=== PATIENT | female | born 1950 | race Caucasian/White ===

== ENCOUNTER 2018-03-17 05:00 | Inpatient (IN) | payer MEDICARE, MEDICAID ==
[2018-03-17] MEDS ORDERED: ALBUTEROL SULFATE 0.083% NEB 2.5 MG/3 ML AMPUL NEB ONE (05:09)
--- NOTE | 2018-03-17 05:16 | ER Document Report ---
ED Respiratory Problem - General Stated Complaint: DIFFICULTY BREATHING Time Seen by Provider: 03/17/18 05:08 - HPI Patient complains to provider of: Short of breath Onset: This morning Short of Breath: Severe Cough: Productive Sputum amount: Small Notes: Patient is a 67-year-old female that presents to the emergency department for chief complaint of shortness of breath. Patient states she is in the process of being diagnosed with COPD. She does not currently have any home breathing treatments and has never required home breathing treatments. She does smoke tobacco daily. Since November she has had increased cough with sputum production and shortness of breath. She states when she woke up this morning the shortness of breath was significantly worse. Patient denies any chest pain fevers or chills. She reports mild improvement after receiving a DuoNeb by EMS. Past Medical History: Hypertension Past Surgical History: Reviewed in chart Social History: Daily tobacco. Denies drugs and alcohol Family History: Reviewed and noncontributory for presenting illness Allergies: Reviewed, see documented allergy list. REVIEW OF SYSTEMS: CONSTITUTIONAL : No fever No chills No diaphoresis No recent illness EENT: No vision changes No congestion No sore throat CARDIOVASCULAR: No chest pain No palpitations RESPIRATORY: shortness of breath cough difficulty breathing GASTROINTESTINAL: No abdominal pain No nausea No vomiting No diarrhea GENITOURINARY: No dysuria No hematuria No difficulty urinating MUSCULOSKELETAL: No back pain No leg pain No arm pain SKIN: No rashes No lesions LYMPHATIC: No swollen, enlarged glands. NEUROLOGICAL: No lightheadedness No headache No weakness No paresthesias PSYCHIATRIC: No anxiety No depression PHYSICAL EXAMINATION: Vital signs reviewed, nursing noted reviewed. GENERAL: Well-appearing, well-nourished and in no acute distress. HEAD: Atraumatic, normocephalic. EYES: Eyes appear normal, extraocular movements intact, sclera anicteric, conjunctiva are normal. ENT: nares patent, oropharynx clear without exudates. Moist mucous membranes. NECK: Normal range of motion, supple without lymphadenopathy LUNGS: Tachypneic, moderate accessory muscle use, speaking in partial sentences , tripoding, very diminished lung sounds bilaterally HEART: Tachycardic and regular rhythm without murmurs ABDOMEN: Soft, nontender, normoactive bowel sounds. No rebound, guarding, or rigidity. No masses appreciated. EXTREMITIES: Nontender, good range of motion, no pitting or edema. NEUROLOGICAL: No focal neurological deficits. Moves all extremities spontaneously Motor and sensory grossly intact on exam. PSYCH: Normal mood, normal affect. SKIN: Warm, Dry, normal turgor, no rashes or lesions noted on exposed skin - Related Data Allergies/Adverse Reactions: Cephalosporins Allergy (Verified 03/14/11 16:02) Past Medical History - Social History Smoking Status: Current Every Day Smoker Family History: Reviewed & Not Pertinent Pulmonary Medical History: Reports: Hx Pneumonia Past Surgical History: Reports: Hx Tubal Ligation - Immunizations Hx Diphtheria, Pertussis, Tetanus Vaccination: Yes Physical Exam - Vital signs Vitals: Pulse Ox 89 L 03/17/18 05:02 Course - Re-evaluation Re-evalutation: 03/17/18 05:16 Vitals reviewed. Nursing notes reviewed. Patient arrived by EMS hypoxic on nonrebreather and was placed on BiPAP. She received 125 mg Solu-Medrol, 2 mg magnesium, and 2 duo nebs by EMS prior to arrival. She was given another 2 albuterol treatments upon arrival to the ED. 03/17/18 05:41 Patient is now on BiPAP and oxygenating well. She is starting to feel improved. EKG shows no acute ischemic changes. 03/17/18 06:42 Patient reevaluated and is significantly improved. Her lung sounds are wheezy bilateral and still diminished. Chest x-ray showed no acute abnormality. Patient's ABG shows respiratory acidosis with hypercapnia consistent with COPD exacerbation. Patient will be admitted to the ICU for further management of her acute respiratory failure. Case discussed with admitting physician. Patient in agreement with this plan and improved at time of admission. Laboratory 03/17/18 03/17/18 03/17/18 05:13 05:13 05:13 WBC 7.3 RBC 5.76 H Hgb 18.0 H Hct 53.4 H MCV 93 MCH 31.3 MCHC 33.7 RDW 13.0 Plt Count 90 L Seg Neutrophils % 65.2 Lymphocytes % 23.9 Monocytes % 6.2 Eosinophils % 3.8 Basophils % 0.9 Absolute Neutrophils 4.7 Absolute Lymphocytes 1.7 Absolute Monocytes 0.5 Absolute Eosinophils 0.3 Absolute Basophils 0.1 Carbonic Acid HCO3/H2CO3 Ratio ABG pH ABG pCO2 ABG pO2 ABG HCO3 ABG Total CO2 ABG O2 Saturation ABG Base Excess FiO2 Sodium 143.6 Potassium 3.3 L Chloride 105 Carbon Dioxide 32 H Anion Gap 7 BUN 18 Creatinine 0.99 Est GFR ( Amer) > 60 Est GFR (Non-Af Amer) 56 L Glucose 155 H Calcium 8.8 Troponin I 0.079 03/17/18 05:13 WBC RBC Hgb Hct MCV MCH MCHC RDW Plt Count Seg Neutrophils % Lymphocytes % Monocytes % Eosinophils % Basophils % Absolute Neutrophils Absolute Lymphocytes Absolute Monocytes Absolute Eosinophils Absolute Basophils Carbonic Acid 1.82 H HCO3/H2CO3 Ratio 16:1 ABG pH 7.32 L ABG pCO2 60.3 H ABG pO2 44.1 L ABG HCO3 30.3 H ABG Total CO2 32.2 H ABG O2 Saturation 75.2 L ABG Base Excess 2.0 FiO2 ROOM AIR Sodium Potassium Chloride Carbon Dioxide Anion Gap BUN Creatinine Est GFR ( Amer) Est GFR (Non-Af Amer) Glucose Calcium Troponin I Chest X-Ray 03/17/18 05:09 IMPRESSION: No acute cardiopulmonary findings. 03/17/18 07:[address] Monroe who accepted admission - Vital Signs Vital signs: Temp Pulse Resp BP Pulse Ox 97.8 F 101 H 20 177/73 H 96 03/17/18 05:21 03/17/18 05:21 03/17/18 07:01 03/17/18 07:00 03/17/18 07:01 - Laboratory Result Diagrams: 03/17/18 05:13 03/17/18 05:13 Laboratory results interpreted by me: 03/17/18 03/17/18 03/17/18 05:13 05:13 05:13 RBC 5.76 H Hgb 18.0 H Hct 53.4 H Plt Count 90 L Carbonic Acid 1.82 H ABG pH 7.32 L ABG pCO2 60.3 H ABG pO2 44.1 L ABG HCO3 30.3 H ABG Total CO2 32.2 H ABG O2 Saturation 75.2 L Potassium 3.3 L Carbon Dioxide 32 H Est GFR (Non-Af Amer) 56 L Glucose 155 H - EKG Interpretation by Me Additional EKG results interpreted by me: 03/17/18 05:40 Interpreted by myself Sinus tachycardia, rate 100, PAC, borderline QT prolongation QTC 496, no ST elevation Critical Care Note - Critical Care Note Total time excluding time spent on procedures (mins): 40 Comments: Respiratory failure. Acidosis. Discharge - Discharge Clinical Impression: Hypoxia, COPD exacerbation, Respiratory acidosis, Elevated troponin Respiratory failure with hypercapnia Qualifiers: Chronicity: acute Qualified Code(s): J96.02 - Acute respiratory failure with hypercapnia Condition: Stable Disposition: ADMITTED INPATIENT Admitting Provider: [facility] Unit Admitted: ICU Referrals: ANAHI JOYA PA-C [NO LOCAL MD] - Follow up as needed
[2018-03-17 05:35] LABS: ARTERIAL BLOOD H2CO3 1.82 mmol/L (1.05-1.35); ARTERIAL BLOOD HCO3 30.3 mmol/L (20-24); ARTERIAL BLOOD O2 SATURATION 75.2 % (94-98); ARTERIAL BLOOD PCO2 60.3 mmHg (35-45); ARTERIAL BLOOD PH 7.32 (7.35-7.45); ARTERIAL BLOOD PO2 44.1 mmHg (80-100); ARTERIAL BLOOD TOTAL CO2 32.2 mmol/L (21-25)
[2018-03-17 05:40] LABS: ABSOLUTE BASOPHILS # (AUTO) 0.1 10^3/uL (0.0-0.2); ABSOLUTE EOSINOPHILS # (AUTO) 0.3 10^3/uL (0.0-0.6); ABSOLUTE LYMPHOCYTES (AUTO) 1.7 10^3/uL (0.5-4.7); ABSOLUTE MONOCYTES (AUTO) 0.5 10^3/uL (0.1-1.4); ABSOLUTE NEUT (AUTO) 4.7 10^3/uL (1.7-8.2); ARTERIAL BLOOD FIO2 ROOM AIR; BASOPHILS % (AUTO) 0.9 % (0-2); EOSINOPHILS % (AUTO) 3.8 % (0-6); HEMATOCRIT 53.4 % (36.0-47.0); LYMPHOCYTES % (AUTO) 23.9 % (13-45); MEAN CORPUSCULAR HEMOGLOBIN 31.3 pg (27.0-33.4); MEAN CORPUSCULAR HGB CONC 33.7 g/dL (32.0-36.0); MEAN CORPUSCULAR VOLUME 93 fl (80-97); MONOCYTES % (AUTO) 6.2 % (3-13); RED BLOOD COUNT 5.76 10^6/uL (3.72-5.28); SEGMENTED NEUTROPHILS % (AUTO) 65.2 % (42-78); TOTAL CELLS COUNTED % (AUTO) 100 %; WHITE BLOOD COUNT 7.3 10^3/uL (4.0-10.5)
[2018-03-17 05:54] LABS: ANION GAP 7 (5-19); BLOOD UREA NITROGEN 18 mg/dL (7-20); CALCIUM 8.8 mg/dL (8.4-10.2); CARBON DIOXIDE 32 mmol/L (22-30); CHLORIDE 105 mmol/L (98-107); GLUCOSE 155 mg/dL (75-110); POTASSIUM 3.3 mmol/L (3.6-5.0); SODIUM 143.6 mmol/L (137-145)
--- NOTE | 2018-03-17 06:03 | RADIOLOGY REPORT (SQ) ---
EXAM DESCRIPTION: XR CHEST 1 VIEW COMPLETED DATE/TME: 03/17/2018 05:09 CLINICAL HISTORY: 67 years Female, shortness of breath COMPARISON: None. NUMBER OF VIEWS/TECHNIQUE: 1/AP FINDINGS: Increased lung volume, clear parenchyma, prominent cardiac silhouette, atherosclerosis, and intact bony thorax. IMPRESSION: No acute cardiopulmonary findings.
[2018-03-17 06:14] LABS: PLATELET COUNT 90 10^3/uL (150-450)
[2018-03-17] MEDS ORDERED: ASPIRIN 81 MG TABLET, CHEWABLE PO ONE (06:44)
--- NOTE | 2018-03-17 07:32 | EKG REPORT ---
SEVERITY:- ABNORMAL ECG - SINUS TACHYCARDIA WITH PAC BIATRIAL ABNORMALITIES BORDERLINE INFERIOR Q WAVES BORDERLINE R WAVE PROGRESSION, ANTERIOR LEADS BORDERLINE PROLONGED QT INTERVAL : Confirmed by: Juan Sevilla MD 17-Mar-2018 07:32:27
--- NOTE | 2018-03-17 12:17 | PDOC H&P ---
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 A year ago she complained of wheeze around cats. I gave her albuterol. She refused pft and missed her follow up. Now she is off all meds. Past Medical History Cardiac Medical History: Reports: Hypertension, Peripheral Vascular Disease Pulmonary Medical History: Reports: Pneumonia EENT Medical History: Reports: Other - rhinitis Neurological Medical History: Reports: None Endocrine Medical History: Reports: None Renal/ Medical History: Reports: None Malignancy Medical History: Reports: None GI Medical History: Reports: None Musculoskeltal Medical History: Reports: Arthritis Psychiatric Medical History: Reports: None Traumatic Medical History: Reports: None Infectious Medical History: Reports: None Past Surgical History Past Surgical History: Reports: Tubal Ligation Social History Information Source: Dr. Land Smoking Status: Current Every Day Smoker Number of Years Smokin Frequency of Alcohol Use: None Hx Recreational Drug Use: No Hx Prescription Drug Abuse: No - Advance Directive Resuscitation Status: Full Code Family History Family History: CAD, DM Parental Family History Reviewed: Yes Children Family History Reviewed: Yes Sibling(s) Family History Reviewed.: Yes Medication/Allergy Home Medications: No Home Medications 03/17/18 Allergies/Adverse Reactions: Cephalosporins Allergy (Verified 03/14/11 16:02) Review of Systems Constitutional: ABSENT: fever(s), headache(s), weight loss Nose, Mouth, and Throat: ABSENT: sore throat Cardiovascular: PRESENT: dyspnea on exertion, edema. ABSENT: chest pain, orthropnea Respiratory: PRESENT: cough, dyspnea, sputum Gastrointestinal: ABSENT: abdominal pain, constipation, diarrhea, hematochezia, vomiting Genitourinary: ABSENT: dysuria, hematuria Integumentary: ABSENT: rash Physical Exam Vital Signs: Temp Pulse Resp BP Pulse Ox 97.8 F 101 H 19 178/63 H 97 03/17/18 05:21 03/17/18 05:21 03/17/18 11:01 03/17/18 11:00 03/17/18 11:01 General appearance: PRESENT: no acute distress Eye exam: ABSENT: conjunctiva pink Mouth exam: PRESENT: moist, neck supple Neck exam: ABSENT: lymphadenopathy, meningismus, tenderness, thyromegaly, tracheal deviation Respiratory exam: PRESENT: rhonchi, wheezes. ABSENT: rales Cardiovascular exam: ABSENT: diastolic murmur, irregular rhythm, systolic murmur GI/Abdominal exam: ABSENT: mass, organolmegaly, tenderness Extremities exam: PRESENT: pedal edema - 1+ Neurological exam: PRESENT: alert Psychiatric exam: PRESENT: appropriate affect Skin exam: PRESENT: other - ankles hyperpignmented. L ankle erythema ulcerations <1cm. Results Laboratory Results: Abnormal - 24 hr 03/17/18 03/17/18 03/17/18 05:13 05:13 05:13 RBC 5.76 H Hgb 18.0 H Hct 53.4 H Plt Count 90 L Carbonic Acid 1.82 H ABG pH 7.32 L ABG pCO2 60.3 H ABG pO2 44.1 L ABG HCO3 30.3 H ABG Total CO2 32.2 H ABG O2 Saturation 75.2 L Potassium 3.3 L Carbon Dioxide 32 H Est GFR (Non-Af Amer) 56 L Glucose 155 H Impressions: Chest X-Ray 03/17/18 05:09 IMPRESSION: No acute cardiopulmonary findings. Assessment & Plan - Diagnosis (1) Acute on chronic respiratory failure with hypercapnia Is this a current diagnosis for this admission?: Yes Plan: levaquin prednisone nebs (2) Chronic obstructive pulmonary disease with acute exacerbation Is this a current diagnosis for this admission?: Yes (3) Panacinar emphysema Is this a current diagnosis for this admission?: Yes (4) Type 2 diabetes mellitus without complications Qualifiers: Diabetes mellitus mcfp insulin use: without mcfp use Qualified Code(s): E11.9 - Type 2 diabetes mellitus without complications Is this a current diagnosis for this admission?: Yes Plan: A1c (5) Secondary polycythemia Is this a current diagnosis for this admission?: Yes (6) 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 Qualifiers: Non-pressure ulcer stage: limited to breakdown of skin Qualified Code(s): I83.223 - 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; L97.321 - 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 of skin; L97.321 - 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 of skin; L97.321 - 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 of skin; L97.321 - 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 of skin Is this a current diagnosis for this admission?: Yes (7) Chronic cor pulmonale Is this a current diagnosis for this admission?: Yes (8) Essential (primary) hypertension Is this a current diagnosis for this admission?: Yes (9) Atherosclerosis of [place] arteries of extremities with intermittent claudication, right leg Is this a current diagnosis for this admission?: Yes (10) Mixed hyperlipidemia Is this a current diagnosis for this admission?: Yes - Inpatient Certification Based on my medical assessment, after consideration of the patient's comorbidities, presenting symptoms, or acuity I expect that the services needed warrant INPATIENT care.: Yes I certify that my determination is in accordance with my understanding of Medicare's requirements for reasonable and necessary INPATIENT services [42 CFR 412.3e].: Yes Medical Necessity: Significant Comorbidiites Make Outpatient Treatment Too Risky , Need Close Monitoring Due to Risk of Patient Decompensation, Need For Continuous Telemetry Monitoring, Need for Nebulizer Therapy and Monitoring of Response, Need for IV Antibiotics, Risk of Complication if Not Cared For in Hospital, Risk of Diagnosis Which Will Require Inpatient Eval/Care/Monitoring
[2018-03-17] MEDS ORDERED: DEXTROSE 50%-WATER 25 GM/50 ML DISP.SYRIN IV PRN ×2 (12:25)
[2018-03-17] MEDS ORDERED: GLUCAGON,HUMAN RECOMB 1 MG INJ IM PRN (12:25)
[2018-03-17] MEDS ORDERED: INSULIN REG, HUMAN 100 UNIT/ML 3 ML VIAL (PYX) SUBCUT PRN (12:25)
[2018-03-17] MEDS ORDERED: DEXTROSE 40% GEL 15 GM TUBE PO PRN ×2 (12:25)
[2018-03-17] MEDS ORDERED: POTASSI CL 20 MEQ/1/2NS 1L 20 MEQ/1,000 ML RTUINJ IV PRN (14:00)
[2018-03-17] MEDS: AMLODIPINE BESYLATE 10 MG TABLET PO SCH (16:35)
[2018-03-17] MEDS: CLOPIDOGREL BISULFATE 75 MG TABLET PO SCH (16:35)
[2018-03-17] MEDS: ISOSORBIDE MONONITRATE 60 MG TAB.ER.24H PO SCH (16:35)
[2018-03-17] MEDS: IPRATROPIUM/ALBUTEROL 0.5-2.5 MG/3 ML AMPUL NEB SCH ×2 (16:37→19:57)
[2018-03-17] MEDS ORDERED: ENOXAPARIN SODIUM INJ 80 MG/0.8 ML DISP.SYRIN SUBCUT SCH (22:00)
[2018-03-17] MEDS: FAMOTIDINE 20 MG TABLET PO SCH ×2 (22:03→22:07)
[2018-03-18 06:53] LABS: HEMATOCRIT 45.8 % (36.0-47.0); MEAN CORPUSCULAR HEMOGLOBIN 30.9 pg (27.0-33.4); MEAN CORPUSCULAR HGB CONC 33.3 g/dL (32.0-36.0); MEAN CORPUSCULAR VOLUME 93 fl (80-97); RED BLOOD COUNT 4.94 10^6/uL (3.72-5.28); RED CELL DISTRIBUTION WIDTH 13.5 % (11.5-14.0); WHITE BLOOD COUNT 10.8 10^3/uL (4.0-10.5)
[2018-03-18 07:06] LABS: ANION GAP 5 (5-19); BLOOD UREA NITROGEN 21 mg/dL (7-20); CALCIUM 8.7 mg/dL (8.4-10.2); CARBON DIOXIDE 29 mmol/L (22-30); CHLORIDE 105 mmol/L (98-107); GLUCOSE 98 mg/dL (75-110); SODIUM 139.4 mmol/L (137-145)
[2018-03-18] MEDS ORDERED: POTASSI CL 20 MEQ/1/2NS 1L 20 MEQ/1,000 ML RTUINJ IV PRN (07:21)
[2018-03-18 07:36] LABS: HEMOGLOBIN 15.2 g/dL (12.0-15.5); PLATELET COUNT 78 10^3/uL (150-450)
--- NOTE | 2018-03-18 07:41 | EKG REPORT ---
SEVERITY:- ABNORMAL ECG - SINUS TACHYCARDIA ATRIAL PREMATURE COMPLEX BIATRIAL ABNORMALITIES ABNRM R PROG, CONSIDER ASMI OR LEAD PLACEMENT NONSPECIFIC T ABNORMALITIES, INFERIOR LEADS BORDERLINE PROLONGED QT INTERVAL : Confirmed by: Juan Sevilla MD 18-Mar-2018 07:40:36
--- NOTE | 2018-03-18 08:08 | PDOC PROGRESS REPORT ---
Subjective Progress Note for:: 03/18/18 Subjective:: less dyspnea Reason For Visit: RESPIRATORY FAILURE Physical Exam Vital Signs: Temp Pulse Resp BP Pulse Ox 98.4 F 91 17 179/64 H 100 03/18/18 03:31 03/18/18 03:31 03/18/18 03:31 03/18/18 03:31 03/18/18 03:31 Intake & Output 03/16/18 03/17/18 03/18/18 07:59 07:59 07:59 Intake Total 418 Output Total 500 Balance -82 Weight 152 lb 12.485 oz 141 lb 5.061 oz General appearance: PRESENT: no acute distress Respiratory exam: PRESENT: wheezes - milder Cardiovascular exam: ABSENT: diastolic murmur, irregular rhythm, systolic murmur GI/Abdominal exam: ABSENT: mass, organolmegaly, tenderness Extremities exam: PRESENT: pedal edema Neurological exam: PRESENT: oriented to situation Psychiatric exam: PRESENT: appropriate affect Results Laboratory Results: 03/18/18 04:35 03/17/18 03/17/18 03/17/18 05:13 13:54 19:25 Troponin I 0.079 0.155 0.112 03/18/18 00:43 Troponin I 0.094 Abnormal - 24 hr 03/17/18 03/17/18 03/18/18 14:05 21:31 04:35 WBC 10.8 H Plt Count 78 L POC Glucose 145 H 119 H Impressions: Chest X-Ray 03/17/18 05:09 IMPRESSION: No acute cardiopulmonary findings. Assessment & Plan - Diagnosis (1) Acute on chronic respiratory failure with hypercapnia Is this a current diagnosis for this admission?: Yes Plan: bipap70% (2) Chronic obstructive pulmonary disease with acute exacerbation Is this a current diagnosis for this admission?: Yes Plan: prednisone levaquin (3) Panacinar emphysema Is this a current diagnosis for this admission?: Yes Plan: advair spiriva (4) Type 2 diabetes mellitus without complications Qualifiers: Diabetes mellitus nursing home insulin use: without remote computer terminal operator use Qualified Code(s): E11.9 - Type 2 diabetes mellitus without complications Is this a current diagnosis for this admission?: Yes Plan: bs lower A1c pending (5) Secondary polycythemia Is this a current diagnosis for this admission?: Yes Plan: hct down to 46 with hydration (6) 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 Bnp. Echo. Added furosemide (8) Essential (primary) hypertension Is this a current diagnosis for this admission?: Yes Plan: bp not down on amlodipine imdur. Added hydralazine. (9) Atherosclerosis of [place] arteries of extremities with intermittent claudication, right leg Is this a current diagnosis for this admission?: Yes (10) Mixed hyperlipidemia Is this a current diagnosis for this admission?: Yes
[2018-03-18] MEDS: IPRATROPIUM/ALBUTEROL 0.5-2.5 MG/3 ML AMPUL NEB SCH ×4 (08:23→20:03)
[2018-03-18 08:44] LABS: POTASSIUM 4.6 mmol/L (3.6-5.0)
[2018-03-18] MEDS ORDERED: ENOXAPARIN SODIUM INJ 80 MG/0.8 ML DISP.SYRIN SUBCUT SCH (10:00)
[2018-03-18] MEDS ORDERED: ENOXAPARIN SODIUM INJ 40 MG/0.4 ML DISP.SYRIN SUBCUT SCH (10:00)
[2018-03-18] MEDS ORDERED: FUROSEMIDE 40 MG TABLET PO SCH (10:00)
[2018-03-18] MEDS ORDERED: LEVOFLOXACIN 500 MG TABLET PO SCH (10:00)
[2018-03-18] MEDS: FAMOTIDINE 20 MG TABLET PO SCH ×2 (11:12→22:35)
[2018-03-18] MEDS: HYDRALAZINE HCL 50 MG TABLET PO SCH ×2 (11:12→15:31)
[2018-03-18] MEDS: ISOSORBIDE MONONITRATE 60 MG TAB.ER.24H PO SCH (11:14)
[2018-03-18] MEDS: CLOPIDOGREL BISULFATE 75 MG TABLET PO SCH (11:15)
[2018-03-18] MEDS: ASPIRIN 81 MG TABLET, CHEWABLE PO SCH (11:16)
[2018-03-18] MEDS: PREDNISONE 20 MG TABLET PO SCH ×2 (11:16→18:21)
[2018-03-18] MEDS: AMLODIPINE BESYLATE 10 MG TABLET PO SCH (11:16)
[2018-03-18] MEDS: TIOTROPIUM BROMIDE DPI 5 CAP/KIT (18 MCG/CAP) IH SCH (11:17)
[2018-03-18] MEDS: FLUTICASONE/SALMETEROL DISKUS 250-50 MCG/DOSE IH SCH ×2 (11:17→22:35)
--- NOTE | 2018-03-18 12:47 | EKG REPORT ---
SEVERITY:- BORDERLINE ECG - SINUS RHYTHM PROBABLE LEFT ATRIAL ABNORMALITY BORDERLINE T WAVE ABNORMALITIES : Confirmed by: Juan Sevilla MD 18-Mar-2018 12:46:46
[2018-03-18] MEDS: FUROSEMIDE INJ/PF 40 MG/4 ML SDV IV SCH ×2 (15:26→22:35)
[2018-03-18] MEDS: LISINOPRIL 10 MG TABLET PO SCH (17:39)
[2018-03-18 18:02] LABS: APPEARANCE,URINE CLEAR; BILIRUBIN,URINE NEGATIVE (NEGATIVE); COLOR,URINE COLORLESS; GLUCOSE, URINE NEGATIVE (NEGATIVE); KETONES,URINE NEGATIVE (NEGATIVE); LEUKOCYTE ESTERASE,URINE NEGATIVE (NEGATIVE); NITRITE,URINE NEGATIVE (NEGATIVE); PROTEIN,URINE NEGATIVE (NEGATIVE); URINE SPECIFIC GRAVITY 1.003; UROBILINOGEN,URINE NEGATIVE mg/dL (<2.0)
[2018-03-19] MEDS ORDERED: MAGNESIUM OXIDE 400 MG TABLET PO PRN (05:36)
[2018-03-19 05:57] LABS: ANION GAP 11 (5-19); BLOOD UREA NITROGEN 27 mg/dL (7-20); CALCIUM 8.6 mg/dL (8.4-10.2); CARBON DIOXIDE 31 mmol/L (22-30); CHLORIDE 96 mmol/L (98-107); GLUCOSE 123 mg/dL (75-110); POTASSIUM 3.7 mmol/L (3.6-5.0); SODIUM 137.8 mmol/L (137-145)
--- NOTE | 2018-03-19 07:42 | PDOC PROGRESS REPORT ---
Subjective Progress Note for:: 03/19/18 Subjective:: less dyspnea Reason For Visit: RESPIRATORY FAILURE Physical Exam Vital Signs: Temp Pulse Resp BP Pulse Ox 97.4 F 105 H 17 158/96 H 100 03/19/18 03:17 03/19/18 03:17 03/19/18 04:00 03/19/18 03:17 03/19/18 03:17 Intake & Output 03/17/18 03/18/18 03/19/18 07:59 07:59 07:59 Intake Total 418 1100 Output Total 500 2 Balance -82 1098 Weight 152 lb 12.485 oz 141 lb 5.061 oz General appearance: PRESENT: no acute distress Respiratory exam: PRESENT: wheezes - mild Cardiovascular exam: ABSENT: diastolic murmur, irregular rhythm, systolic murmur GI/Abdominal exam: ABSENT: mass, organolmegaly, tenderness Extremities exam: PRESENT: pedal edema - less Neurological exam: PRESENT: oriented to situation Psychiatric exam: PRESENT: appropriate affect Skin exam: PRESENT: other - L leg ulcers healing Results Laboratory Results: 03/18/18 04:35 03/19/18 04:40 Abnormal - 24 hr 03/18/18 03/18/18 03/18/18 04:35 04:35 04:35 WBC 10.8 H Plt Count 78 L Chloride Carbon Dioxide BUN 21 H Est GFR (Non-Af Amer) Glucose POC Glucose NT-Pro-B Natriuret Pep 95632 H 03/18/18 03/19/18 21:20 04:40 WBC Plt Count Chloride 96 L Carbon Dioxide 31 H BUN 27 H Est GFR (Non-Af Amer) 58 L Glucose 123 H POC Glucose 116 H NT-Pro-B Natriuret Pep Impressions: Chest X-Ray 03/17/18 05:09 IMPRESSION: No acute cardiopulmonary findings. Assessment & Plan - Diagnosis (1) Acute on chronic diastolic congestive heart failure Is this a current diagnosis for this admission?: Yes Plan: La40 mr- ddf1 pw13 Lv- ej67 ar- grd11 [id number] Rve pericardial effusion. On ace40 [id number] [id number] bid. Decrease to qd. (2) Chronic cor pulmonale Is this a current diagnosis for this admission?: Yes (3) Acute on chronic respiratory failure with hypercapnia Is this a current diagnosis for this admission?: Yes Plan: fiO2 down from 70 to 60% on bipap (4) Chronic obstructive pulmonary disease with acute exacerbation Is this a current diagnosis for this admission?: Yes (5) Panacinar emphysema Is this a current diagnosis for this admission?: Yes (6) Secondary polycythemia Is this a current diagnosis for this admission?: Yes (7) Varicose veins of left lower extremity with both ulcer of ankle and inflamm ation Qualifiers: Non-pressure ulcer stage: limited to breakdown of skin Qualified Code(s): I83.223 - 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; L97.321 - 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 of skin Is this a current diagnosis for this admission?: Yes (8) Essential (primary) hypertension Is this a current diagnosis for this admission?: Yes (9) Atherosclerosis of [place] arteries of extremities with intermittent claudication, right leg Is this a current diagnosis for this admission?: Yes (10) Mixed hyperlipidemia Is this a current diagnosis for this admission?: Yes - Inpatient Certification Medical Necessity: Significant Comorbidiites Make Outpatient Treatment Too Risky, Need Close Monitoring Due to Risk of Patient Decompensation, Need For Continuous Telemetry Monitoring, Need for Nebulizer Therapy and Monitoring of Response, Need for IV Antibiotics, Risk of Complication if Not Cared For in Hospital, Risk of Diagnosis Which Will Require Inpatient Eval/Care/Monitoring
[2018-03-19] MEDS: IPRATROPIUM/ALBUTEROL 0.5-2.5 MG/3 ML AMPUL NEB SCH ×4 (07:44→19:18)
[2018-03-19] MEDS: ASPIRIN 81 MG TABLET, CHEWABLE PO SCH (09:26)
[2018-03-19] MEDS: AMLODIPINE BESYLATE 10 MG TABLET PO SCH (09:26)
[2018-03-19] MEDS: FAMOTIDINE 20 MG TABLET PO SCH ×2 (09:26→21:56)
[2018-03-19] MEDS: PREDNISONE 20 MG TABLET PO SCH ×2 (09:26→17:50)
[2018-03-19] MEDS: LISINOPRIL 10 MG TABLET PO SCH (09:26)
[2018-03-19] MEDS: ISOSORBIDE MONONITRATE 60 MG TAB.ER.24H PO SCH (09:26)
[2018-03-19] MEDS: FLUTICASONE/SALMETEROL DISKUS 250-50 MCG/DOSE IH SCH ×2 (09:27→21:56)
[2018-03-19] MEDS: TIOTROPIUM BROMIDE DPI 5 CAP/KIT (18 MCG/CAP) IH SCH (09:27)
[2018-03-19] MEDS ORDERED: LEVOFLOXACIN 500 MG/D5W RTU 500 MG/100 ML RTUPB IV SCH (10:00)
[2018-03-19] MEDS ORDERED: FUROSEMIDE INJ/PF 40 MG/4 ML SDV IV SCH (10:00)
--- NOTE | 2018-03-19 22:38 | XCELERA REPORT ---
[address] [address] Transthoracic Echocardiogram Report Name: SWETHA VILA Age: 67 yrs Gender: Female : 1950 Patient Status: Inpatient Patient Location: [address] [place] [address] Study Date: 03/18/2018 11:04 AM Procedure: A two-dimensional transthoracic echocardiogram with color flow Doppler was performed. Study Quality: Technically suboptimal. The study was technically difficult with many images being suboptimal in quality. The study was technically limited with all images being suboptimal in quality. Reason For Study: diastolic failure History: diastolic failure. Ordering Physician: ELIAN GREEN Performed By: Rufina Bethea Interpretation Summary The left ventricle is normal in size. There is mild concentric left ventricular hypertrophy. LV EF is 60% Left ventricular systolic function is normal. Doppler measurements suggest impaired left ventricular relaxation, which is associated with grade I/IV or mild diastolic dysfunction The left ventricular wall motion is normal. There is no thrombus. The right ventricle is not well visualized secondary to technical limitations The right atrium is normal. The left atrial size is normal. There is no evidence of mitral valve prolapse. There is no vegetation seen on the mitral valve. There is no mitral valve stenosis. There is a trace to mild amount of mitral regurgitation There is no aortic valvular vegetation. There is no aortic valve stenosis There is no LVOT obstruction. No aortic regurgitation is present. There is aortic sclerosis without aortic stenosis. There is no tricuspid stenosis. Por interogation of Tricuspid valve.Probably mild TR and mild pulmonary hypertension.RVSP is 40 to 45 mm of Hg , with RA mean of 5 to 10.But this may not be accurate. There is no pulmonic valvular stenosis. There is no pulmonic valvular regurgitation. The aortic root is normal size. The inferior vena cava appeared normal and decreased > 50% with respiration (RAP 5-10 mmHg) Small pericardial effusion. There are no echocardiographic or Doppler indications for cardiac tamponade MMode/2D Measurements & Calculations RVDd: 3.3 cm LVIDd: 4.3 cm FS: 36.9 % Ao root diam: 3.2 cm IVSd: 1.3 cm LVIDs: 2.7 cm EDV(Teich): 83.3 ml Ao root area: 7.8 cm2 LVPWd: 1.3 cm ESV(Teich): 27.4 ml EF(Teich): 67.1 % Doppler Measurements & Calculations MV E max leroy: MV dec slope: Ao V2 max: LV V1 max P.1 cm/sec 167.8 cm/sec 7.1 mmHg MV A max leroy: 539.4 cm/sec2 Ao max PG: LV V1 max: 136.2 cm/sec MV dec time: 0.19 sec11.3 mmHg 133.5 cm/sec MV E/A: 0.74 PA V2 max: TR max leroy: 122.0 cm/sec 294.5 cm/sec PA max P.9 mmHg TR max P.7 mmHg Left Ventricle The left ventricle is normal in size. There is mild concentric left ventricular hypertrophy. LV EF is 60%. Left ventricular systolic function is normal. Doppler measurements suggest impaired left ventricular relaxation, which is associated with grade I/IV or mild diastolic dysfunction. The left ventricular wall motion is normal. There is no thrombus. Right Ventricle The right ventricle is not well visualized secondary to technical limitations. Atria The right atrium is normal. The left atrial size is normal. Mitral Valve There is no evidence of mitral valve prolapse. There is no vegetation seen on the mitral valve. There is no mitral valve stenosis. There is a trace to mild amount of mitral regurgitation. Aortic Valve There is no aortic valvular vegetation. There is no aortic valve stenosis. There is no LVOT obstruction. There is aortic sclerosis without aortic stenosis. No aortic regurgitation is present. Tricuspid Valve There is no tricuspid stenosis. Por interogation of Tricuspid valve.Probably mild TR and mild pulmonary hypertension.RVSP is 40 to 45 mm of Hg , with RA mean of 5 to 10.But this may not be accurate. Pulmonic Valve There is no pulmonic valvular stenosis. There is no pulmonic valvular regurgitation. Great Vessels The aortic root is normal size. The inferior vena cava appeared normal and decreased > 50% with respiration (RAP 5-10 mmHg). Effusions Small pericardial effusion. There are no echocardiographic or Doppler indications for cardiac tamponade. : ELIAN GREEN > Corrie Vargas
[2018-03-20 06:12] LABS: ANION GAP 8 (5-19); BLOOD UREA NITROGEN 37 mg/dL (7-20); CALCIUM 8.6 mg/dL (8.4-10.2); CARBON DIOXIDE 34 mmol/L (22-30); CHLORIDE 93 mmol/L (98-107); GLUCOSE 112 mg/dL (75-110); POTASSIUM 4.2 mmol/L (3.6-5.0); SODIUM 134.5 mmol/L (137-145)
--- NOTE | 2018-03-20 07:34 | PDOC PROGRESS REPORT ---
Subjective Progress Note for:: 03/20/18 Subjective:: dyspnea still improving. Nurse said nonrebreather overnight. Sats ok. Reason For Visit: RESPIRATORY FAILURE Physical Exam Vital Signs: Temp Pulse Resp BP Pulse Ox 97.7 F 90 20 104/69 100 03/20/18 03:07 03/20/18 03:07 03/20/18 03:07 03/20/18 03:07 03/20/18 03:07 Intake & Output 03/18/18 03/19/18 03/20/18 07:59 07:59 07:59 Intake Total 418 1100 600 Output Total 500 2 Balance -82 1098 600 Weight 141 lb 5.061 oz General appearance: PRESENT: no acute distress Respiratory exam: PRESENT: wheezes - mild Cardiovascular exam: ABSENT: diastolic murmur, irregular rhythm, systolic murmur GI/Abdominal exam: ABSENT: mass, organolmegaly, tenderness Extremities exam: ABSENT: pedal edema Neurological exam: PRESENT: oriented to situation Psychiatric exam: PRESENT: appropriate affect Results Laboratory Results: 03/18/18 04:35 03/20/18 05:12 03/20/18 05:12 Sodium 134.5 L Potassium 4.2 Chloride 93 L Carbon Dioxide 34 H Anion Gap 8 BUN 37 H Creatinine 1.08 Est GFR ( Amer) > 60 Est GFR (Non-Af Amer) 51 L Glucose 112 H Calcium 8.6 Impressions: Chest X-Ray 03/17/18 05:09 IMPRESSION: No acute cardiopulmonary findings. Assessment & Plan - Diagnosis (1) Acute on chronic diastolic congestive heart failure Is this a current diagnosis for this admission?: Yes Plan: bun37 cr1.1. Make furosemide 40po qd. Stop imdur & amlodipine. 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 Qualifiers: Non-pressure ulcer stage: limited to breakdown of skin Qualified Code(s): I83.223 - 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; L97.321 - 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 of skin Is this a current diagnosis for this admission?: Yes (8) Essential (primary) hypertension Is this a current diagnosis for this admission?: Yes (9) Atherosclerosis of [place] arteries of extremities with intermittent claudication, right leg Is this a current diagnosis for this admission?: Yes (10) Mixed hyperlipidemia Is this a current diagnosis for this admission?: Yes - Inpatient Certification Medical Necessity: Significant Comorbidiites Make Outpatient Treatment Too Risky, Need Close Monitoring Due to Risk of Patient Decompensation, Need for Nebulizer Therapy and Monitoring of Response, Risk of Complication if Not Cared For in Hospital, Risk of Diagnosis Which Will Require Inpatient Eval/Care/Monitoring
[2018-03-20] MEDS: IPRATROPIUM/ALBUTEROL 0.5-2.5 MG/3 ML AMPUL NEB SCH ×4 (08:04→20:04)
[2018-03-20] MEDS: FAMOTIDINE 20 MG TABLET PO SCH ×2 (09:59→21:16)
[2018-03-20] MEDS: PREDNISONE 20 MG TABLET PO SCH ×2 (09:59→18:00)
[2018-03-20] MEDS: LEVOFLOXACIN 500 MG TABLET PO SCH (09:59)
[2018-03-20] MEDS ORDERED: FUROSEMIDE 40 MG TABLET PO SCH (10:00)
[2018-03-20] MEDS: ASPIRIN 81 MG TABLET, CHEWABLE PO SCH (10:00)
[2018-03-20] MEDS: LISINOPRIL 10 MG TABLET PO SCH (10:00)
[2018-03-20] MEDS: FLUTICASONE/SALMETEROL DISKUS 250-50 MCG/DOSE IH SCH ×2 (10:01→21:16)
[2018-03-20] MEDS: TIOTROPIUM BROMIDE DPI 5 CAP/KIT (18 MCG/CAP) IH SCH (10:01)
[2018-03-21 06:27] LABS: ANION GAP 10 (5-19); BLOOD UREA NITROGEN 45 mg/dL (7-20); CARBON DIOXIDE 32 mmol/L (22-30); CHLORIDE 96 mmol/L (98-107); GLUCOSE 118 mg/dL (75-110); POTASSIUM 4.3 mmol/L (3.6-5.0); SODIUM 138.4 mmol/L (137-145)
[2018-03-21] MEDS: IPRATROPIUM/ALBUTEROL 0.5-2.5 MG/3 ML AMPUL NEB SCH ×4 (08:01→20:02)
--- NOTE | 2018-03-21 09:38 | PDOC PROGRESS REPORT ---
Subjective Progress Note for:: 03/21/18 Subjective:: dyspnea still improving. Nurse said panics when dyspneic on NC 6L but sats ok. Reason For Visit: RESPIRATORY FAILURE Physical Exam Vital Signs: Temp Pulse Resp BP Pulse Ox 98.3 F 84 16 128/70 H 91 L 03/21/18 07:32 03/21/18 08:01 03/21/18 08:01 03/21/18 07:32 03/21/18 08:21 Intake & Output 03/20/18 03/21/18 03/22/18 07:59 07:59 07:59 Intake Total 1266 667 Balance 1266 667 Weight 136 lb 7.458 oz 140 lb 14.006 oz General appearance: PRESENT: no acute distress Respiratory exam: PRESENT: clear to auscultation ginger Cardiovascular exam: ABSENT: diastolic murmur, irregular rhythm, systolic murmur GI/Abdominal exam: ABSENT: mass, organolmegaly, tenderness Extremities exam: ABSENT: pedal edema Neurological exam: PRESENT: oriented to situation Psychiatric exam: PRESENT: anxious Results Laboratory Results: 03/18/18 04:35 03/21/18 05:39 03/21/18 05:39 Sodium 138.4 Potassium 4.3 Chloride 96 L Carbon Dioxide 32 H Anion Gap 10 BUN 45 H Creatinine 1.20 Est GFR ( Amer) 55 L Est GFR (Non-Af Amer) 45 L Glucose 118 H Calcium 9.0 Impressions: Chest X-Ray 03/17/18 05:09 IMPRESSION: No acute cardiopulmonary findings. Assessment & Plan - Diagnosis (1) Acute on chronic diastolic congestive heart failure Is this a current diagnosis for this admission?: Yes Plan: bun45 cr1.2. Decrease furosemide to 20mg qd. 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 Resumed amlodipine. (9) Atherosclerosis of [place] arteries of extremities with intermittent claudication, right leg Is this a current diagnosis for this admission?: Yes (10) Mixed hyperlipidemia Is this a current diagnosis for this admission?: Yes
[2018-03-21] MEDS ORDERED: FUROSEMIDE 40 MG TABLET PO SCH (10:00)
[2018-03-21] MEDS: TIOTROPIUM BROMIDE DPI 5 CAP/KIT (18 MCG/CAP) IH SCH (10:44)
[2018-03-21] MEDS: FUROSEMIDE 20 MG TABLET PO SCH (10:44)
[2018-03-21] MEDS: LISINOPRIL 10 MG TABLET PO SCH (10:44)
[2018-03-21] MEDS: FLUTICASONE/SALMETEROL DISKUS 250-50 MCG/DOSE IH SCH ×2 (10:44→22:21)
[2018-03-21] MEDS: AMLODIPINE BESYLATE 10 MG TABLET PO SCH (10:45)
[2018-03-21] MEDS: FAMOTIDINE 20 MG TABLET PO SCH ×2 (10:45→22:21)
[2018-03-21] MEDS: LEVOFLOXACIN 500 MG TABLET PO SCH (10:45)
[2018-03-21] MEDS: PREDNISONE 20 MG TABLET PO SCH ×2 (10:45→17:07)
[2018-03-21] MEDS: ASPIRIN 81 MG TABLET, CHEWABLE PO SCH (10:45)
[2018-03-22 05:47] LABS: ANION GAP 5 (5-19); BLOOD UREA NITROGEN 47 mg/dL (7-20); CALCIUM 8.6 mg/dL (8.4-10.2); CARBON DIOXIDE 36 mmol/L (22-30); CHLORIDE 99 mmol/L (98-107); GLUCOSE 120 mg/dL (75-110); POTASSIUM 4.6 mmol/L (3.6-5.0)
--- NOTE | 2018-03-22 06:47 | PDOC PROGRESS REPORT ---
Subjective Progress Note for:: 03/22/18 Subjective:: dyspnea much better. Nose bled on oxymizer. Wants shower. Reason For Visit: RESPIRATORY FAILURE Physical Exam Vital Signs: Temp Pulse Resp BP Pulse Ox 97.9 F 95 20 182/70 H 97 03/22/18 04:03 03/22/18 04:03 03/22/18 04:03 03/22/18 04:03 03/22/18 04:03 Intake & Output 03/20/18 03/21/18 03/22/18 07:59 07:59 07:59 Intake Total 1266 667 817 Output Total 1500 Balance 1266 667 -683 Weight 136 lb 7.458 oz 140 lb 14.006 oz General appearance: PRESENT: no acute distress Respiratory exam: PRESENT: clear to auscultation ginger Cardiovascular exam: ABSENT: diastolic murmur, irregular rhythm, systolic murmur GI/Abdominal exam: ABSENT: mass, organolmegaly, tenderness Extremities exam: ABSENT: pedal edema Neurological exam: PRESENT: oriented to situation Psychiatric exam: PRESENT: appropriate affect Results Laboratory Results: 03/18/18 04:35 03/22/18 05:13 03/22/18 05:13 Sodium 140.0 Potassium 4.6 Chloride 99 Carbon Dioxide 36 H Anion Gap 5 BUN 47 H Creatinine 1.07 Est GFR ( Amer) > 60 Est GFR (Non-Af Amer) 51 L Glucose 120 H Calcium 8.6 03/17/18 03/17/18 03/17/18 05:13 13:54 19:25 Troponin I 0.079 0.155 0.112 NT-Pro-B Natriuret Pep 03/18/18 03/18/18 00:43 04:35 Troponin I 0.094 NT-Pro-B Natriuret Pep 42881 H Impressions: Chest X-Ray 03/17/18 05:09 IMPRESSION: No acute cardiopulmonary findings. Assessment & Plan - Diagnosis (1) Acute on chronic diastolic congestive heart failure Is this a current diagnosis for this admission?: Yes Plan: bp back up. Resume hydralazine. 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 Qualifiers: Non-pressure ulcer stage: limited to breakdown of skin Qualified Code(s): I83.223 - 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; L97.321 - 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 of skin Is this a current diagnosis for this admission?: Yes (8) Essential (primary) hypertension Is this a current diagnosis for this admission?: Yes (9) Atherosclerosis of [place] arteries of extremities with intermittent claudication, right leg Is this a current diagnosis for this admission?: Yes (10) Mixed hyperlipidemia Is this a current diagnosis for this admission?: Yes - Inpatient Certification Medical Necessity: Significant Comorbidiites Make Outpatient Treatment Too Risky, Need Close Monitoring Due to Risk of Patient Decompensation, Need for Nebulizer Therapy and Monitoring of Response, Risk of Complication if Not Cared For in Hospital, Risk of Diagnosis Which Will Require Inpatient Zahraa l/Care/Monitoring
[2018-03-22] MEDS: HYDRALAZINE HCL 50 MG TABLET PO SCH ×3 (07:45→21:09)
[2018-03-22] MEDS: IPRATROPIUM/ALBUTEROL 0.5-2.5 MG/3 ML AMPUL NEB SCH ×4 (09:08→20:33)
[2018-03-22] MEDS: FUROSEMIDE 20 MG TABLET PO SCH (10:28)
[2018-03-22] MEDS: LEVOFLOXACIN 500 MG TABLET PO SCH (10:28)
[2018-03-22] MEDS: LISINOPRIL 10 MG TABLET PO SCH (10:29)
[2018-03-22] MEDS: TIOTROPIUM BROMIDE DPI 5 CAP/KIT (18 MCG/CAP) IH SCH (10:29)
[2018-03-22] MEDS: PREDNISONE 20 MG TABLET PO SCH ×2 (10:30→17:04)
[2018-03-22] MEDS: FAMOTIDINE 20 MG TABLET PO SCH ×2 (10:30→21:09)
[2018-03-22] MEDS: FLUTICASONE/SALMETEROL DISKUS 250-50 MCG/DOSE IH SCH ×2 (10:30→21:10)
[2018-03-22] MEDS: AMLODIPINE BESYLATE 10 MG TABLET PO SCH (10:30)
[2018-03-23 05:52] LABS: ANION GAP 6 (5-19); BLOOD UREA NITROGEN 38 mg/dL (7-20); CALCIUM 8.9 mg/dL (8.4-10.2); CARBON DIOXIDE 34 mmol/L (22-30); CHLORIDE 100 mmol/L (98-107); GLUCOSE 107 mg/dL (75-110); POTASSIUM 4.4 mmol/L (3.6-5.0); SODIUM 140.2 mmol/L (137-145)
[2018-03-23] MEDS: HYDRALAZINE HCL 50 MG TABLET PO SCH ×3 (05:56→21:43)
--- NOTE | 2018-03-23 09:33 | PDOC PROGRESS REPORT ---
Subjective Progress Note for:: 03/23/18 Subjective:: dyspnea walking to bedside commode. Panics:tremor sweating racing. Reason For Visit: RESPIRATORY FAILURE Physical Exam Vital Signs: Temp Pulse Resp BP Pulse Ox 97.7 F 88 16 138/62 H 94 03/23/18 07:24 03/23/18 07:24 03/23/18 07:24 03/23/18 07:24 03/23/18 07:24 Intake & Output 03/22/18 03/23/18 03/24/18 07:59 07:59 07:59 Intake Total 1057 1792 Output Total 1505 700 Balance -448 1092 Weight 141 lb 12.116 oz 140 lb 6.951 oz General appearance: PRESENT: mild distress - walking Respiratory exam: PRESENT: clear to auscultation ginger Cardiovascular exam: PRESENT: irregular rhythm - pac's, systolic murmur. ABSENT: diastolic murmur GI/Abdominal exam: ABSENT: mass, organolmegaly, tenderness Extremities exam: ABSENT: pedal edema Neurological exam: PRESENT: oriented to situation Psychiatric exam: PRESENT: anxious Results Laboratory Results: 03/18/18 04:35 03/23/18 05:13 03/23/18 05:13 Sodium 140.2 Potassium 4.4 Chloride 100 Carbon Dioxide 34 H Anion Gap 6 BUN 38 H Creatinine 0.97 Est GFR ( Amer) > 60 Est GFR (Non-Af Amer) 58 L Glucose 107 Calcium 8.9 03/18/18 03/18/18 03/22/18 00:43 04:35 05:13 Troponin I 0.094 NT-Pro-B Natriuret Pep 71853 H 2930 H Impressions: Chest X-Ray 03/17/18 05:09 IMPRESSION: No acute cardiopulmonary findings. Assessment & Plan - Diagnosis (1) Acute on chronic diastolic congestive heart failure Is this a current diagnosis for this admission?: Yes Plan: [id number]. Bun down. (2) Chronic cor pulmonale Is this a current diagnosis for this admission?: Yes (3) Acute on chronic respiratory failure with hypercapnia Is this a current diagnosis for this admission?: Yes Plan: sat72 after 5 steps to [facility] off oxygen. Will probably need few more days to be able to navigate house and oxymizer 4L. 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 Added clonidine (9) Atherosclerosis of [place] arteries of extremities with intermittent claudication, right leg Is this a current diagnosis for this admission?: Yes (10) Mixed hyperlipidemia Is this a current diagnosis for this admission?: Yes (11) Panic attacks Is this a current diagnosis for this admission?: Yes Plan: clonidine
[2018-03-23] MEDS: FLUTICASONE/SALMETEROL DISKUS 250-50 MCG/DOSE IH SCH ×2 (09:47→21:44)
[2018-03-23] MEDS: PREDNISONE 20 MG TABLET PO SCH ×2 (09:48→17:31)
[2018-03-23] MEDS: CLONIDINE HCL 0.2 MG TABLET PO SCH ×2 (09:48→21:43)
[2018-03-23] MEDS: FUROSEMIDE 20 MG TABLET PO SCH (09:48)
[2018-03-23] MEDS: LEVOFLOXACIN 500 MG TABLET PO SCH (09:48)
[2018-03-23] MEDS: LISINOPRIL 10 MG TABLET PO SCH (09:48)
[2018-03-23] MEDS: FAMOTIDINE 20 MG TABLET PO SCH ×2 (09:48→21:43)
[2018-03-23] MEDS: AMLODIPINE BESYLATE 10 MG TABLET PO SCH (09:49)
[2018-03-23] MEDS: TIOTROPIUM BROMIDE DPI 5 CAP/KIT (18 MCG/CAP) IH SCH (09:50)
[2018-03-24 05:54] LABS: BLOOD UREA NITROGEN 45 mg/dL (7-20); CALCIUM 8.7 mg/dL (8.4-10.2); GLUCOSE 111 mg/dL (75-110); POTASSIUM 4.8 mmol/L (3.6-5.0)
[2018-03-24 05:59] LABS: CARBON DIOXIDE 34 mmol/L (22-30); CHLORIDE 100 mmol/L (98-107)
[2018-03-24 06:04] LABS: ANION GAP 3 (5-19)
[2018-03-24] MEDS: HYDRALAZINE HCL 50 MG TABLET PO SCH ×3 (07:01→21:45)
[2018-03-24] MEDS: TIOTROPIUM BROMIDE DPI 5 CAP/KIT (18 MCG/CAP) IH SCH (09:54)
[2018-03-24] MEDS: CLONIDINE HCL 0.2 MG TABLET PO SCH ×2 (09:54→21:45)
[2018-03-24] MEDS: FAMOTIDINE 20 MG TABLET PO SCH ×2 (09:54→21:45)
[2018-03-24] MEDS: FLUTICASONE/SALMETEROL DISKUS 250-50 MCG/DOSE IH SCH ×2 (09:54→21:45)
[2018-03-24] MEDS: PREDNISONE 20 MG TABLET PO SCH ×2 (09:55→17:26)
[2018-03-24] MEDS: AMLODIPINE BESYLATE 10 MG TABLET PO SCH (09:55)
[2018-03-24] MEDS: LISINOPRIL 10 MG TABLET PO SCH (09:55)
[2018-03-24] MEDS: FUROSEMIDE 20 MG TABLET PO SCH (09:55)
--- NOTE | 2018-03-24 11:03 | PDOC PROGRESS REPORT ---
Subjective Progress Note for:: 03/24/18 Subjective:: clonidine helped panic some. She paniced this am when walking with sat97 on oxymizer extension. Reason For Visit: RESPIRATORY FAILURE Physical Exam Vital Signs: Temp Pulse Resp BP Pulse Ox 98.0 F 77 18 126/58 H 92 03/24/18 07:33 03/24/18 07:33 03/24/18 07:33 03/24/18 07:33 03/24/18 08:57 Intake & Output 03/23/18 03/24/18 03/25/18 07:59 07:59 07:59 Intake Total 1792 2711 Output Total 700 300 Balance 1092 2411 Weight 140 lb 6.951 oz 145 lb 11.609 oz General appearance: PRESENT: no acute distress Respiratory exam: PRESENT: clear to auscultation ginger Cardiovascular exam: ABSENT: diastolic murmur, irregular rhythm, systolic murmur GI/Abdominal exam: ABSENT: mass, organolmegaly, tenderness Extremities exam: ABSENT: pedal edema Neurological exam: PRESENT: oriented to situation Psychiatric exam: PRESENT: anxious Results Laboratory Results: 03/18/18 04:35 03/24/18 05:15 03/24/18 05:15 Sodium 137.0 Potassium 4.8 Chloride 100 Carbon Dioxide 34 H Anion Gap 3 L BUN 45 H Creatinine 1.09 Est GFR ( Amer) > 60 Est GFR (Non-Af Amer) 50 L Glucose 111 H Calcium 8.7 Impressions: Chest X-Ray 03/17/18 05:09 IMPRESSION: No acute cardiopulmonary findings. Assessment & Plan - Diagnosis (1) Acute on chronic diastolic congestive heart failure Is this a current diagnosis for this admission?: Yes Plan: bp better on clonidine (2) Chronic cor pulmonale Is this a current diagnosis for this admission?: Yes (3) Acute on chronic respiratory failure with hypercapnia Is this a current diagnosis for this admission?: Yes (4) Chronic obstructive pulmonary disease with acute exacerbation Is this a current diagnosis for this admission?: Yes (5) Panacinar emphysema Is this a current diagnosis for this admission?: Yes (6) Secondary polycythemia Is this a current diagnosis for this admission?: Yes (7) 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 arteries of extremities with intermittent claudication, right leg Is this a current diagnosis for this admission?: Yes (10) Mixed hyperlipidemia Is this a current diagnosis for this admission?: Yes (11) Panic attacks Is this a current diagnosis for this admission?: Yes Plan: fluoxetine - Inpatient Certification Medical Necessity: Significant Comorbidiites Make Outpatient Treatment Too Risky, Need Close Monitoring Due to Risk of Patient Decompensation, Need For Continuous Telemetry Monitoring, Risk of Complication if Not Cared For in Hospital, Risk of Diagnosis Which Will Require Inpatient Eval/Care/Monitoring
[2018-03-24] MEDS: SERTRALINE HCL 50 MG TABLET PO SCH (14:03)
[2018-03-25 05:50] LABS: ANION GAP 5 (5-19); BLOOD UREA NITROGEN 52 mg/dL (7-20); CALCIUM 8.8 mg/dL (8.4-10.2); CARBON DIOXIDE 32 mmol/L (22-30); CHLORIDE 101 mmol/L (98-107); GLUCOSE 108 mg/dL (75-110); POTASSIUM 4.7 mmol/L (3.6-5.0); SODIUM 137.7 mmol/L (137-145)
[2018-03-25] MEDS: HYDRALAZINE HCL 50 MG TABLET PO SCH ×2 (05:57→13:01)
--- NOTE | 2018-03-25 08:32 | PDOC DISCHARGE SUMMARY ---
General - Admit/Disc Date/PCP Admission Date/Primary Care Provider: 03/17/18 08:46 ELIAN GREEN MD Discharge Date: 03/25/18 - Discharge Diagnosis (1) Acute on chronic diastolic congestive heart failure Is this a current diagnosis for this admission?: Yes (2) Chronic cor pulmonale Is this a current diagnosis for this admission?: Yes (3) Acute on chronic respiratory failure with hypercapnia Is this a current diagnosis for this admission?: Yes (4) Chronic obstructive pulmonary disease with acute exacerbation Is this a current diagnosis for this admission?: Yes (5) Panacinar emphysema Is this a current diagnosis for this admission?: Yes (6) Secondary polycythemia Is this a current diagnosis for this admission?: Yes (7) 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 Is this a current diagnosis for this admission?: Yes (8) Essential (primary) hypertension Is this a current diagnosis for this admission?: Yes (9) Atherosclerosis of [place] arteries of extremities with intermittent claudication, right leg Is this a current diagnosis for this admission?: Yes (10) Mixed hyperlipidemia Is this a current diagnosis for this admission?: Yes (11) Panic attacks Is this a current diagnosis for this admission?: Yes - Additional Information Resuscitation Status: Full Code Discharge Diet: Cardiac Discharge Activity: Balance Activity w/Rest, Weigh Daily Prescriptions: Amlodipine Besylate [Norvasc 10 mg Tablet] 10 mg PO DAILY #90 tablet Clonidine HCl [Catapres 0.2 mg Tablet] 0.2 mg PO Q12 #60 tablet Fluticasone/Salmeterol [Advair 250-50 Diskus 14 Dose/Diskus] 1 inh IH Q12 #1 inhaler Furosemide [Lasix 20 mg Tablet] 20 mg PO DAILY #90 tablet Hydralazine HCl [Apresoline 50 mg Tablet] 50 mg PO Q8 #90 tablet Lisinopril [Prinivil 40 mg Tablet] 40 mg PO DAILY #90 tablet Sertraline HCl [Zoloft 50 mg Tablet] 50 mg PO DAILY #30 tablet Tiotropium [place] [Spiriva Handihaler 5 Cap/Kit (18 Mcg/Cap)] 1 cap IH DAILY #30 kit Home Medications: Amlodipine Besylate [Norvasc 10 mg Tablet] 10 mg PO DAILY #90 tablet 03/23/18 Clonidine HCl [Catapres 0.2 mg Tablet] 0.2 mg PO Q12 #60 tablet 03/23/18 Fluticasone/Salmeterol [Advair 250-50 Diskus 14 Dose/Diskus] 1 inh IH Q12 #1 inhaler 03/23/18 Furosemide [Lasix 20 mg Tablet] 20 mg PO DAILY #90 tablet 03/23/18 Hydralazine HCl [Apresoline 50 mg Tablet] 50 mg PO Q8 #90 tablet 03/23/18 Lisinopril [Prinivil 40 mg Tablet] 40 mg PO DAILY #90 tablet 03/23/18 Tiotropium [place] [Spiriva Handihaler 5 Cap/Kit (18 Mcg/Cap)] 1 cap IH DAILY #30 kit 03/23/18 Sertraline HCl [Zoloft 50 mg Tablet] 50 mg PO DAILY #30 tablet 03/25/18 History of Present Illness Patient complains of: dyspnea History of Present Illness: SWETHA VILA is a 67 year old female with 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 A year ago she complained of wheeze around cats. I gave her albuterol. She refused pft and missed her follow up. Now she is off all meds. Hospital Course Hospital Course: wheeze gone on advair & spiriva after a week of levaquin and prednisone. Sat 72 on room air after 5 steps but ok on 4L oxymizer. Can walk to bathroom with extension. Still panics occasionally with effort and normal sat. Sertraline was added. Echo showed mild mr ddf1 pw13 ej67 [id number]. Bnp came down from about 11k to 3k with furosemide and 4 bp meds. Edema is gone and L leg ulcers healed. Physical Exam Vital Signs: Temp Pulse Resp BP Pulse Ox 98.2 F 72 18 137/69 H 92 03/25/18 03:07 03/25/18 07:00 03/25/18 03:07 03/25/18 03:07 03/25/18 03:07 Intake & Output 03/24/18 03/25/18 03/26/18 07:59 07:59 07:59 Intake Total 2711 2170 Output Total 300 1050 Balance 2411 1120 Weight 145 lb 11.609 oz 149 lb 0.52 oz General appearance: PRESENT: no acute distress Respiratory exam: PRESENT: clear to auscultation ginger Cardiovascular exam: ABSENT: diastolic murmur, irregular rhythm, systolic murmur GI/Abdominal exam: ABSENT: mass, organolmegaly, tenderness Extremities exam: ABSENT: pedal edema Neurological exam: PRESENT: oriented to situation Psychiatric exam: PRESENT: appropriate affect Results Laboratory Results: 03/18/18 04:35 03/25/18 05:12 Labs- Last Values WBC 10.8 10^3/uL (4.0-10.5) H 03/18/18 04:35 RBC 4.94 10^6/uL (3.72-5.28) 03/18/18 04:35 Hgb 15.2 g/dL (12.0-15.5) D 03/18/18 04:35 Hct 45.8 % (36.0-47.0) 03/18/18 04:35 MCV 93 fl (80-97) 03/18/18 04:35 MCH 30.9 pg (27.0-33.4) 03/18/18 04:35 MCHC 33.3 g/dL (32.0-36.0) 03/18/18 04:35 RDW 13.5 % (11.5-14.0) 03/18/18 04:35 Plt Count 78 10^3/uL (150-450) L 03/18/18 04:35 Seg Neutrophils % 65.2 % (42-78) 03/17/18 05:13 Lymphocytes % 23.9 % (13-45) 03/17/18 05:13 Monocytes % 6.2 % (3-13) 03/17/18 05:13 Eosinophils % 3.8 % (0-6) 03/17/18 05:13 Basophils % 0.9 % (0-2) 03/17/18 05:13 Absolute Neutrophils 4.7 10^3/uL (1.7-8.2) 03/17/18 05:13 Absolute Lymphocytes 1.7 10^3/uL (0.5-4.7) 03/17/18 05:13 Absolute Monocytes 0.5 10^3/uL (0.1-1.4) 03/17/18 05:13 Absolute Eosinophils 0.3 10^3/uL (0.0-0.6) 03/17/18 05:13 Absolute Basophils 0.1 10^3/uL (0.0-0.2) 03/17/18 05:13 Carbonic Acid 1.82 mmol/L (1.05-1.35) H 03/17/18 05:13 HCO3/H2CO3 Ratio 16:1 03/17/18 05:13 ABG pH 7.32 (7.35-7.45) L 03/17/18 05:13 ABG pCO2 60.3 mmHg (35-45) H 03/17/18 05:13 ABG pO2 44.1 mmHg (80-100) L 03/17/18 05:13 ABG HCO3 30.3 mmol/L (20-24) H 03/17/18 05:13 ABG Total CO2 32.2 mmol/L (21-25) H 03/17/18 05:13 ABG O2 Saturation 75.2 % (94-98) L 03/17/18 05:13 ABG Base Excess 2.0 mmol/L 03/17/18 05:13 FiO2 ROOM AIR 03/17/18 05:13 Sodium 137.7 mmol/L (137-145) 03/25/18 05:12 Potassium 4.7 mmol/L (3.6-5.0) 03/25/18 05:12 Chloride 101 mmol/L (98-107) 03/25/18 05:12 Carbon Dioxide 32 mmol/L (22-30) H 03/25/18 05:12 Anion Gap 5 (5-19) 03/25/18 05:12 BUN 52 mg/dL (7-20) H 03/25/18 05:12 Creatinine 1.18 mg/dL (0.52-1.25) 03/25/18 05:12 Est GFR ( Amer) 56 (>60) L 03/25/18 05:12 Est GFR (Non-Af Amer) 46 (>60) L 03/25/18 05:12 Glucose 108 mg/dL (75-110) 03/25/18 05:12 POC Glucose 116 mg/dL (70-110) H 03/18/18 21:20 Hemoglobin A1c % 5.0 % (4.7-6.0) 03/18/18 04:35 Calcium 8.8 mg/dL (8.4-10.2) 03/25/18 05:12 Troponin I 0.094 ng/mL 03/18/18 00:43 NT-Pro-B Natriuret Pep 2930 pg/mL (5-900) H 03/22/18 05:13 Urine Color COLORLESS 03/18/18 17:35 Urine Appearance CLEAR 03/18/18 17:35 Urine pH 5.0 (5.0-9.0) 03/18/18 17:35 Ur Specific [place] 1.003 03/18/18 17:35 Urine Protein NEGATIVE mg/dL (NEGATIVE) 03/18/18 17:35 Urine Glucose (UA) NEGATIVE mg/dL (NEGATIVE) 03/18/18 17:35 Urine Ketones NEGATIVE mg/dL (NEGATIVE) 03/18/18 17:35 Urine Blood NEGATIVE (NEGATIVE) 03/18/18 17:35 Urine Nitrite NEGATIVE (NEGATIVE) 03/18/18 17:35 Urine Bilirubin NEGATIVE (NEGATIVE) 03/18/18 17:35 Urine Urobilinogen NEGATIVE mg/dL (<2.0) 03/18/18 17:35 Ur Leukocyte Esterase NEGATIVE (NEGATIVE) 03/18/18 17:35 Urine RBC (Auto) 0 /HPF 03/18/18 17:35 Urine Bacteria (Auto) TRACE /HPF 03/18/18 17:35 Squamous Epi Cells Auto <1 /HPF 03/18/18 17:35 Urine Mucus (Auto) RARE /LPF 03/18/18 17:35 Urine Ascorbic Acid NEGATIVE (NEGATIVE) 03/18/18 17:35 Impressions: Chest X-Ray 03/17/18 05:09 IMPRESSION: No acute cardiopulmonary findings. Qualifiers - * PATIENT BEING DISCHARGED WITH ANY OF THE FOLLOWING DIAGNOSIS: Heart Failure HF Pt being discharged on ACEI for LVEF less than 40%?: Yes HF Pt being discharged on ARBS for LVEF less than 40%?: No Reason(s) for not prescribing ARBS:: Not indicated HF Pt with Afib discharged with Warfarin?: No Reason(s) for not prescribing Warfarin:: Not indicated HF Pt discharged on evidence-based Beta Sohail:: No Reason(s) for not prescribing evidence-based Beta Sohail:: Medical Contraindication Plan Discharge Plan: home. Ov next week.
[2018-03-25] MEDS: FAMOTIDINE 20 MG TABLET PO SCH (09:00)
[2018-03-25] MEDS: FUROSEMIDE 20 MG TABLET PO SCH (09:00)
[2018-03-25] MEDS: SERTRALINE HCL 50 MG TABLET PO SCH (09:01)
[2018-03-25] MEDS: CLONIDINE HCL 0.2 MG TABLET PO SCH (09:01)
[2018-03-25] MEDS: AMLODIPINE BESYLATE 10 MG TABLET PO SCH (09:01)
[2018-03-25] MEDS: LISINOPRIL 10 MG TABLET PO SCH (09:01)
[2018-03-25] MEDS: FLUTICASONE/SALMETEROL DISKUS 250-50 MCG/DOSE IH SCH (09:01)
[2018-03-25] MEDS: TIOTROPIUM BROMIDE DPI 5 CAP/KIT (18 MCG/CAP) IH SCH (09:02)
[2018-03-25 14:52] VITALS: BP 176/66
== END 2018-03-25 18:36 | disposition home or self-care (01) | DRG 291 ==
LOC: ER 05:00 → EH 08:46 → 3N 15:50
PROVIDERS: ADMIT Family Medicine; ATTEND Family Medicine
DX: I50.33 Acute on chronic diastolic (congestive) heart failure (principal); J96.22 Acute and chronic respiratory failure with hypercapnia; J96.21 Acute and chronic respiratory failure with hypoxia; E87.2 Acidosis; I83.223 Varicose veins of left lower extremity with both ulcer of ankle and inflammation; L97.321 Non-pressure chronic ulcer of left ankle limited to breakdown of skin; J43.1 Panlobular emphysema; I27.81 Cor pulmonale (chronic); D75.1 Secondary polycythemia; I11.0 Hypertensive heart disease with heart failure; E11.9 Type 2 diabetes mellitus without complications; E78.2 Mixed hyperlipidemia; I70.211 Atherosclerosis of native arteries of extremities with intermittent claudication, right leg; F41.0 Panic disorder [episodic paroxysmal anxiety]; F17.210 Nicotine dependence, cigarettes, uncomplicated
CPT/HCPCS: 36415; 36600; 71045; 80048; 81001; 82803; 82962; 83036; 83880; 84484; 85025; 85027; 93005; 93010; 93306; 94640; 94660; 94667; 99291; J1940; J1956; J3480; J3490; J7512; J7620

== ENCOUNTER 2018-03-25 19:42 | Inpatient (IN) | payer MEDICARE, MEDICAID ==
[2018-03-25] MEDS ORDERED: ASPIRIN 81 MG TABLET, CHEWABLE PO ONE (19:58)
[2018-03-25] MEDS ORDERED: IPRATROPIUM/ALBUTEROL 0.5-2.5 MG/3 ML AMPUL NEB ONE ×2 (19:58→20:00)
[2018-03-25 20:09] LABS: ABSOLUTE EOSINOPHILS # (AUTO) 0.1 10^3/uL (0.0-0.6); ABSOLUTE LYMPHOCYTES (AUTO) 2.2 10^3/uL (0.5-4.7); ABSOLUTE NEUT (AUTO) 7.2 10^3/uL (1.7-8.2); BASOPHILS % (AUTO) 0.4 % (0-2); HEMATOCRIT 50.9 % (36.0-47.0); HEMOGLOBIN 17.2 g/dL (12.0-15.5); MEAN CORPUSCULAR HEMOGLOBIN 31.4 pg (27.0-33.4); MEAN CORPUSCULAR HGB CONC 33.7 g/dL (32.0-36.0); MEAN CORPUSCULAR VOLUME 93 fl (80-97); MONOCYTES % (AUTO) 9.6 % (3-13); PLATELET COUNT 111 10^3/uL (150-450); RED BLOOD COUNT 5.46 10^6/uL (3.72-5.28); RED CELL DISTRIBUTION WIDTH 13.6 % (11.5-14.0); TOTAL CELLS COUNTED % (AUTO) 100 %; WHITE BLOOD COUNT 10.6 10^3/uL (4.0-10.5)
[2018-03-25 20:15] LABS: ALANINE AMINOTRANSFERASE 31 U/L (9-52); ALBUMIN 3.9 g/dL (3.5-5.0); ALKALINE PHOSPHATASE 90 U/L (38-126); ANION GAP 5 (5-19); ASPARTATE AMINO TRANSFERASE 33 U/L (14-36); BILIRUBIN,DIRECT 0.5 mg/dL (0.0-0.4); BILIRUBIN,TOTAL 1.6 mg/dL (0.2-1.3); BLOOD UREA NITROGEN 52 mg/dL (7-20); CALCIUM 8.5 mg/dL (8.4-10.2); CARBON DIOXIDE 33 mmol/L (22-30); CHLORIDE 95 mmol/L (98-107); CREATINE KINASE 47 U/L (30-135); GLUCOSE 162 mg/dL (75-110); POTASSIUM 3.8 mmol/L (3.6-5.0); SODIUM 133.4 mmol/L (137-145); TOTAL PROTEIN 6.4 g/dL (6.3-8.2)
[2018-03-25 20:26] LABS: CREATINE KINASE MB 3.38 ng/mL (<4.55)
[2018-03-25 20:34] LABS: TROPONIN I 0.044 ng/mL
--- NOTE | 2018-03-25 20:42 | RADIOLOGY REPORT (SQ) ---
EXAM DESCRIPTION: CHEST SINGLE VIEW COMPLETED DATE/TIME: 03/25/2018 8:18 pm REASON FOR STUDY: sob COMPARISON: 03/17/2018 and earlier EXAM PARAMETERS: NUMBER OF VIEWS: One view. TECHNIQUE: Single frontal radiographic view of the chest acquired. RADIATION DOSE: NA LIMITATIONS: None. FINDINGS: LUNGS AND PLEURA: No opacities, masses or pneumothorax. No pleural effusion. Persistent b lunting of the costophrenic angles, unchanged. MEDIASTINUM AND HILAR STRUCTURES: No masses. Contour normal. HEART AND VASCULAR STRUCTURES: Cardiac silhouette is unchanged in size. Central pulmonary vasculatur e is normal. BONES: No acute findings. HARDWARE: None in the chest. OTHER: No other significant finding. IMPRESSION: NO ACUTE RADIOGRAPHIC FINDING IN THE CHEST. TECHNICAL DOCUMENTATION: JOB ID: [id number] [employer]- All Rights Reserved Reading location - IP/workstation name: [email or web address]
[2018-03-25 20:51] LABS: ARTERIAL BLOOD BASE EXCESS 3.6 mmol/L; ARTERIAL BLOOD HCO3 31.5 mmol/L (20-24); ARTERIAL BLOOD O2 SATURATION 97.1 % (94-98); ARTERIAL BLOOD PCO2 59.9 mmHg (35-45); ARTERIAL BLOOD PH 7.34 (7.35-7.45); ARTERIAL BLOOD PO2 99.8 mmHg (80-100); ARTERIAL BLOOD TOTAL CO2 33.4 mmol/L (21-25)
[2018-03-25 20:52] LABS: ARTERIAL BLOOD FIO2 50%
--- NOTE | 2018-03-25 21:49 | ER Document Report ---
ED General - General Chief Complaint: Breathing Difficulty Stated Complaint: DIFFICULTY BREATHING Time Seen by Provider: 03/25/18 19:58 Mode of Arrival: Medic Information source: Patient, Emergency Med Personnel, [facility] Records Notes: 67-year-old female with congestive heart failure, hypertension, peripheral vascular disease, COPD who is still smoking presents via EMS with complaint of shortness of breath. Patient was discharged from the hospital today on home oxygen. She is supposed to be on 6 L nasal cannula continuously. Patient denies any tobacco use today . Patient denies any chest pain, abdominal pain, nausea, vomiting. She is complaining of a dull aching headache. Patient states that she was unable to walk from her car to the house without extreme palpitations and shortness of breath. She states that she fell to the ground prior to reaching her stairs. She denies any head injury, loss of consciousness. TRAVEL OUTSIDE OF THE [place] IN LAST 30 DAYS: No - HPI Onset: Just prior to arrival Onset/Duration: Sudden Quality of pain: Achy Severity: Mild Associated symptoms: Nonproductive cough, Shortness of breath, Other - Dizziness. denies: Nausea, Vomiting Exacerbated by: Coughing, Other - Smoking Relieved by: Denies Similar symptoms previously: Yes Recently seen / treated by doctor: Yes - Discharge from hospital today - Related Data Allergies/Adverse Reactions: Cephalosporins Allergy (Verified 03/14/11 16:02) iodine Allergy (Verified 03/25/18 20:16) niacin Allergy (Verified 03/25/18 20:16) shellfish derived Allergy (Verified 03/25/18 20:16) Past Medical History - General Information source: Patient, [facility] Records - Social History Smoking Status: Current Every Day Smoker Cigarette use (# per day): Yes - 15 Smoking Education Provided: Yes - Smoking cessation counseling was provided for 4 minutes at the bedside Frequency of alcohol use: None Drug Abuse: None Lives with: Alone Family History: CAD, DM Patient has suicidal ideation: No Patient has homicidal ideation: No - Past Medical History Cardiac Medical History: Reports: Hx Congestive Heart Failure, Hx Hypertension, Hx Peripheral Vascular Disease Pulmonary Medical History: Reports: Hx Pneumonia Renal/ Medical History: Denies: Hx Peritoneal Dialysis Musculoskeletal Medical History: Reports Hx Arthritis Past Surgical History: Reports: Hx Kidney (Renal Surgery) - bilateral stents, Hx Tubal Ligation - Immunizations Hx Diphtheria, Pertussis, Tetanus Vaccination: Yes Review of Systems - Review of Systems Notes: REVIEW OF SYSTEMS: CONSTITUTIONAL : Denies fever, chills, or sweats. Denies recent illness. Denies weight loss, recent hospitalizations. EENT: Denies visual changes, eye pain. Denies sore throat, oral lesions, difficulty swallowing. CARDIOVASCULAR: Denies chest pain. Denies lower extremity edema. RESPIRATORY: + Shortness of breath, cough GASTROINTESTINAL: Denies abdominal pain or distention. Denies nausea, v omiting, or diarrhea. Denies blood in vomitus, stools, or per rectum. Denies black, tarry stools. Denies constipation. GENITOURINARY: Denies difficulty urinating, painful urination, frequency, blood in urine, or vaginal discharge. MUSCULOSKELETAL: Denies back or neck pain or stiffness. Denies joint pain or swelling. SKIN: Denies rash, lesions or sores. HEMATOLOGIC : Denies easy bruising or bleeding. LYMPHATIC: Denies swollen glands. NEUROLOGICAL: Denies confusion or altered mental status. Denies loss of consciousness. Denies dizziness or lightheadedness. Denies headache. Denies weakness or paralysis. Denies problems difficulty with ambulation, slurred speech. Denies sensory loss, numbness, or tingling. Denies seizures. PSYCHIATRIC: Denies anxiety or stress. Denies depression, suicidal ideation, or homicidal ideation. Denies visual or auditory hallucinations. Physical Exam - Vital signs Vitals: Resp 26 H 03/25/18 19:48 - Notes Notes: PHYSICAL EXAMINATION: GENERAL: Moderate distress HEAD: Atraumatic, normocephalic. EYES: Pupils equal round and reactive to light, extraocular movements intact, conjunctiva are normal. ENT: Nares patent, oropharynx clear without exudates. Dry mucous membranes. NECK: Normal range of motion, supple without lymphadenopathy LUNGS: Diminished breath sounds in all lung blood. Tachypnea, accessory muscle use. HEART: Tachycardic, regular rhythm ABDOMEN: Soft, nontender, nondistended abdomen. No guarding, no rebound. No masses appreciated. Female : deferred Musculoskeletal: Normal range of motion, no pitting or edema. No cyanosis. NEUROLOGICAL: Cranial nerves grossly intact. Normal speech, normal gait. Normal sensory, motor exams PSYCH: Normal mood, normal affect. SKIN: Warm, Dry, normal turgor, no rashes or lesions noted. Course - Re-evaluation Re-evalutation: Laboratory 03/25/18 03/25/18 03/25/18 19:35 19:35 19:35 WBC 10.6 H RBC 5.46 H Hgb 17.2 H Hct 50.9 H MCV 93 MCH 31.4 MCHC 33.7 RDW 13.6 Plt Count 111 L Seg Neutrophils % 68.0 Lymphocytes % 21.0 Monocytes % 9.6 Eosinophils % 1.0 Basophils % 0.4 Absolute Neutrophils 7.2 Absolute Lymphocytes 2.2 Absolute Monocytes 1.0 Absolute Eosinophils 0.1 Absolute Basophils 0.0 Carbonic Acid HCO3/H2CO3 Ratio ABG pH ABG pCO2 ABG pO2 ABG HCO3 ABG Total CO2 ABG O2 Saturation ABG Base Excess FiO2 Sodium 133.4 L Potassium 3.8 Chloride 95 L Carbon Dioxide 33 H Anion Gap 5 BUN 52 H Creatinine 1.10 Est GFR ( Amer) > 60 Est GFR (Non-Af Amer) 50 L Glucose 162 H Calcium 8.5 Total Bilirubin 1.6 H Direct Bilirubin 0.5 H Neonat Total Bilirubin Not Reportable Neonat Direct Bilirubin Not Reportable Neonat Indirect Bili Not Reportable AST 33 ALT 31 Alkaline Phosphatase 90 Creatine Kinase 47 CK-MB (CK-2) 3.38 Troponin I 0.044 NT-Pro-B Natriuret Pep 1900 H Total Protein 6.4 Albumin 3.9 03/25/18 20:24 WBC RBC Hgb Hct MCV MCH MCHC RDW Plt Count Seg Neutrophils % Lymphocytes % Monocytes % Eosinophils % Basophils % Absolute Neutrophils Absolute Lymphocytes Absolute Monocytes Absolute Eosinophils Absolute Basophils Carbonic Acid 1.80 H HCO3/H2CO3 Ratio 17:1 ABG pH 7.34 L ABG pCO2 59.9 H ABG pO2 99.8 ABG HCO3 31.5 H ABG Total CO2 33.4 H ABG O2 Saturation 97.1 ABG Base Excess 3.6 FiO2 50% Sodium Potassium Chloride Carbon Dioxide Anion Gap BUN Creatinine Est GFR ( Amer) Est GFR (Non-Af Amer) Glucose Calcium Total Bilirubin Direct Bilirubin Neonat Total Bilirubin Neonat Direct Bilirubin Neonat Indirect Bili AST ALT Alkaline Phosphatase Creatine Kinase CK-MB (CK-2) Troponin I NT-Pro-B Natriuret Pep Total Protein Albumin Chest X-Ray 03/25/18 19:59 IMPRESSION: NO ACUTE RADIOGRAPHIC FINDING IN THE CHEST. 03/25/18 23:55 67-year-old female with known respiratory failure presents via EMS with complaint of shortness of breath. Upon EMS arrival patient was found to have an O2 saturation of 88%. Patient did receive breathing treatments and Solu-Medrol prior to arrival. Upon arrival patient was placed on site monitor which showed her to be tachycardic and hypoxic despite being on 6 L nasal cannula. Patient does have increased work of breathing, accessory muscle use, and ability to speak in full sentences. EKG was obtained and showed the patient to be in sinus tachycardia. Exam is significant for tachypnea, diminished breath sounds. BiPAP was placed on the patient and additional breathing treatments were administered. Previous medical records and nursing notes reviewed. CBC is without leukocytosis or anemia. CMP does show mild hyponatremia, and elevated BUN of 52 and a bicarb of 33. Troponin is indeterminant but on review of previous labs obtained during last admission this has improved. Patient's BNP is also elevated but again much improved when compared to prior labs done 2 weeks ago. Chest x-ray is without evidence of pneumonia. CTA obtained and pending. Patient did receive a small IV fluid bolus, 0.5 mg of IV Ativan. On reevaluation patient states that she feels better with the BiPAP on. I did speak to Dr. Monroe who has accepted the patient for admission to the [facility]. CTA obtained and negative for pulmonary embolism. Does show a small pleural effusion. 03/26/18 01:56 Chest X-Ray 03/25/18 19:59 IMPRESSION: NO ACUTE RADIOGRAPHIC FINDING IN THE CHEST. Chest/Abdomen CTA 03/25/18 21:58 IMPRESSION: Negative for pulmonary embolus or thoracic aortic aneurysm/dissection. Atheromatous changes of the distal descending thoracic aorta and more significant atheromatous changes in the visualized upper abdominal aorta. Cardiomegaly. Small pericardial effusion. Partial visualization of what appears to be a severely atrophic right kidney. The lungs are clear TECHNICAL DOCUMENTATION: Quality ID # 436: Final reports with documentation of one or more dose reduction techniques (e.g., Automated exposure control, adjustment of the mA and/or kV according to patient size, use of iterative reconstruction technique) copyright 2011 [employer]- All Rights Reserved - Vital Signs Vital signs: Temp Pulse Resp BP Pulse Ox 97.5 F 13 152/57 H 96 03/25/18 21:11 03/26/18 01:46 03/26/18 01:46 03/26/18 01:46 - Laboratory Result Diagrams: 03/25/18 19:35 03/25/18 19:35 Laboratory results interpreted by me: 03/25/18 03/25/18 03/25/18 19:35 19:35 19:35 WBC 10.6 H RBC 5.46 H Hgb 17.2 H Hct 50.9 H Plt Count 111 L Carbonic Acid ABG pH ABG pCO2 ABG HCO3 ABG Total CO2 Sodium 133.4 L Chloride 95 L Carbon Dioxide 33 H BUN 52 H Est GFR (Non-Af Amer) 50 L Glucose 162 H Total Bilirubin 1.6 H Direct Bilirubin 0.5 H NT-Pro-B Natriuret Pep 1900 H 03/25/18 20:24 WBC RBC Hgb Hct Plt Count Carbonic Acid 1.80 H ABG pH 7.34 L ABG pCO2 59.9 H ABG HCO3 31.5 H ABG Total CO2 33.4 H Sodium Chloride Carbon Dioxide BUN Est GFR (Non-Af Amer) Glucose Total Bilirubin Direct Bilirubin NT-Pro-B Natriuret Pep - Diagnostic Test Radiology reviewed: Image reviewed, Reports reviewed - EKG Interpretation by Me EKG shows normal: Sinus rhythm Rate: Normal, Tachycardia Critical Care Note - Critical Care Note Total time excluding time spent on procedures (mins): 40 - Minutes of critical care time spent in direct contact evaluating and reevaluating the patient, treating symptoms, reviewing labs and studies and speaking with family and consultants excluding any procedures Discharge - Discharge Clinical Impression: Hypoxia, Elevated troponin, Essential (primary) hypertension, Chronic cor pulmonale, Acute on chronic respiratory failure with hypercapnia, COPD exacerbation, Panic attacks, Pleural effusion Respiratory failure Qualifiers: Chronicity: acute on chronic Respiratory failure complication: hypoxia and hypercapnia Qualified Code(s): J96.21 - Acute and chronic respiratory failure with hypoxia Condition: Fair Disposition: ADMITTED INPATIENT Admitting Provider: [facility] Unit Admitted: [facility]
[2018-03-25] MEDS ORDERED: DIPHENHYDRAMINE HCL 50 MG/ML VIAL IV ONE (22:36)
[2018-03-25] MEDS ORDERED: FAMOTIDINE INJ/PF 20 MG/2 ML SDV IV ONE (22:36)
[2018-03-25] MEDS ORDERED: LORAZEPAM INJ 2 MG/1 ML VIAL IV ONE (23:46)
--- NOTE | 2018-03-26 | RADIOLOGY REPORT (SQ) ---
EXAM DESCRIPTION: CT CHEST ANGIOGRAPHY WITHOUT THEN WITH IV CONTRAST COMPLETED DATE/TME: 03/25/2018 21:58 CLINICAL HISTORY: 67 years, Female, tachy sob COMPARISON: None. TECHNIQUE: [id number] Images stored on PACS. All CT scanners at this facility use dose modulation, iterative reconstruction, and/or weight based dosing when appropriate to reduce radiation dose to as low as reasonably achievable (ALARA). Axial CTA images were obtained with coronal and sagittal MIPS reconstructions. Reformatted images were obtained on a dedicated 3-D workstation. [facility]: Dose Right [facility]: CareDose [facility]: Dose Right [facility]: Teradose 4D [facility]: Smart LoveIt LIMITATIONS: None. FINDINGS: There is no intraluminal filling defect to suggest pulmonary embolus. Coronary artery calcification. Mild ectasia of the ascending thoracic aorta. Atheromatous change of the aortic arch and descending thoracic aorta. Negative for aneurysm or dissection. Cardiomegaly with a small pericardial effusion. More extensive atheromatous change involving the distal descending thoracic aorta. Atheromatous change causing narrowing of the visualized upper abdominal aorta. What appears to be an atrophic right kidney. Osseous structures are grossly intact. No pneumothorax. The visualized airways are patent. The lungs are clear.. IMPRESSION: Negative for pulmonary embolus or thoracic aortic aneurysm/dissection. Atheromatous changes of the distal descending thoracic aorta and more significant atheromatous changes in the visualized upper abdominal aorta. Cardiomegaly. Small pericardial effusion. Partial visualization of what appears to be a severely atrophic right kidney. The lungs are clear TECHNICAL DOCUMENTATION: Quality ID # 436: Final reports with documentation of one or more dose reduction techniques (e.g., Automated exposure control, adjustment of the mA and/or kV according to patient size, use of iterative reconstruction technique) copyright 2011 [employer]- All Rights Reserved
--- NOTE | 2018-03-26 08:14 | PDOC H&P ---
History of Present Illness Admission Date/PCP: 03/25/18 23:56 ELIAN GREEN MD Patient complains of: dyspnea History of Present Illness: SWETHA VILA is a 67 year old female with respiratory failure. She came back in 5h after discharge from [address] [place] [address]. Her dyspnea had improved on standard treatment. She got so dyspneic, she collapsed at her door. EMS said she was hypoxic. PCO2 in ER was 60 again. Past Medical History Cardiac Medical History: Reports: Congestive Heart Failure, Hypertension, Peripheral Vascular Disease Pulmonary Medical History: Reports: Chronic Obstructive Pulmonary Disease (COPD), Pneumonia, Respiratory Failure EENT Medical History: Reports: None Neurological Medical History: Reports: None Endocrine Medical History: Reports: None Renal/ Medical History: Reports: None Malignancy Medical History: Reports: None GI Medical History: Reports: None Musculoskeltal Medical History: Reports: Arthritis Skin Medical History: Reports: None Psychiatric Medical History: Reports: Other - panic Traumatic Medical History: Reports: None Hematology: Reports: None Infectious Medical History: Reports: None Past Surgical History Past Surgical History: Reports: Tubal Ligation Social History Information Source: Dr. Land Lives with: Alone Smoking Status: Current Every Day Smoker Last Time Smoked: 9 days ago Frequency of Alcohol Use: None Hx Recreational Drug Use: No Hx Prescription Drug Abuse: No - Advance Directive Resuscitation Status: Full Code Family History Family History: CAD, DM Parental Family History Reviewed: Yes Children Family History Reviewed: Yes Sibling(s) Family History Reviewed.: Yes Medication/Allergy Allergies/Adverse Reactions: Cephalosporins Allergy (Verified 03/14/11 16:02) iodine Allergy (Verified 03/25/18 20:16) niacin Allergy (Verified 03/25/18 20:16) shellfish derived Allergy (Verified 03/25/18 20:16) Review of Systems Constitutional: PRESENT: fatigue, weight loss. ABSENT: fever(s) Cardiovascular: PRESENT: dyspnea on exertion. ABSENT: chest pain, orthropnea Respiratory: PRESENT: cough, dyspnea. ABSENT: sputum Gastrointestinal: ABSENT: abdominal pain, constipation, diarrhea, hematochezia, vomiting Genitourinary: ABSENT: dysuria, hematuria Psychiatric: PRESENT: anxiety Physical Exam Vital Signs: Temp Pulse Resp BP Pulse Ox 97.5 F 17 132/67 H 97 03/25/18 21:11 03/26/18 05:01 03/26/18 05:01 03/26/18 05:01 Intake & Output 03/24/18 03/25/18 03/26/18 07:59 07:59 07:59 Weight 145 lb 4.554 oz General appearance: PRESENT: no acute distress - on bipap Eye exam: ABSENT: conjunctival injection Mouth exam: PRESENT: neck supple Neck exam: ABSENT: lymphadenopathy, tenderness, thyromegaly, tracheal deviation Respiratory exam: PRESENT: clear to auscultation ginger Cardiovascular exam: PRESENT: irregular rhythm - skips, systolic murmur - apical. ABSENT: diastolic murmur Murmur grade: 1 GI/Abdominal exam: ABSENT: mass, organolmegaly, tenderness Extremities exam: ABSENT: pedal edema Neurological exam: PRESENT: oriented to situation Psychiatric exam: PRESENT: anxious Results Laboratory Results: 03/25/18 19:35 03/25/18 19:35 03/25/18 03/25/18 03/25/18 19:35 19:35 20:24 WBC 10.6 H RBC 5.46 H Hgb 17.2 H Hct 50.9 H MCV 93 MCH 31.4 MCHC 33.7 RDW 13.6 Plt Count 111 L Seg Neutrophils % 68.0 Lymphocytes % 21.0 Monocytes % 9.6 Eosinophils % 1.0 Basophils % 0.4 Absolute Neutrophils 7.2 Absolute Lymphocytes 2.2 Absolute Monocytes 1.0 Absolute Eosinophils 0.1 Absolute Basophils 0.0 Carbonic Acid 1.80 H HCO3/H2CO3 Ratio 17:1 ABG pH 7.34 L ABG pCO2 59.9 H ABG pO2 99.8 ABG HCO3 31.5 H ABG O2 Saturation 97.1 ABG Base Excess 3.6 FiO2 50% Sodium 133.4 L Potassium 3.8 Chloride 95 L Carbon Dioxide 33 H Anion Gap 5 BUN 52 H Creatinine 1.10 Est GFR ( Amer) > 60 Est GFR (Non-Af Amer) 50 L Glucose 162 H Calcium 8.5 Total Bilirubin 1.6 H AST 33 ALT 31 Alkaline Phosphatase 90 Total Protein 6.4 Albumin 3.9 03/25/18 03/25/18 19:35 19:35 Creatine Kinase 47 CK-MB (CK-2) 3.38 Troponin I 0.044 NT-Pro-B Natriuret Pep 1900 H Impressions: Chest X-Ray 03/25/18 19:59 IMPRESSION: NO ACUTE RADIOGRAPHIC FINDING IN THE CHEST. Chest/Abdomen CTA 03/25/18 21:58 IMPRESSION: Negative for pulmonary embolus or thoracic aortic aneurysm/dissection. Atheromatous changes of the distal descending thoracic aorta and more significant atheromatous changes in the visualized upper abdominal aorta. Cardiomegaly. Small pericardial effusion. Partial visualization of what appears to be a severely atrophic right kidney. The lungs are clear TECHNICAL DOCUMENTATION: Quality ID # 436: Final reports with documentation of one or more dose reduction techniques (e.g., Automated exposure control, adjustment of the mA and/or kV according to patient size, use of iterative reconstruction technique) copyright 2011 [employer]- All Rights Reserved Assessment & Plan - Diagnosis (1) Acute on chronic respiratory failure with hypercapnia Is this a current diagnosis for this admission?: Yes Plan: add daliresp. Pft. Consult pulmonary. May need rehab then pulmonary rehab. (2) Panacinar emphysema Is this a current diagnosis for this admission?: Yes (3) Chronic cor pulmonale Is this a current diagnosis for this admission?: Yes (4) Chronic diastolic heart failure Is this a current diagnosis for this admission?: Yes (5) Essential (primary) hypertension Is this a current diagnosis for this admission?: Yes (6) Atherosclerosis of [place] arteries of extremities with intermittent cl audication, right leg Is this a current diagnosis for this admission?: Yes (7) Mixed hyperlipidemia Is this a current diagnosis for this admission?: Yes - Inpatient Certification Based on my medical assessment, after consideration of the patient's comorbidities, presenting symptoms, or acuity I expect that the services needed warrant INPATIENT care.: Yes I certify that my determination is in accordance with my understanding of Medicare's requirements for reasonable and necessary INPATIENT services [42 CFR 412.3e].: Yes Medical Necessity: Failure to Improve With Outpatient Therapy, Significant Comorbidiites Make Outpatient Treatment Too Risky, Need Close Monitoring Due to Risk of Patient Decompensation, Need For Continuous Telemetry Monitoring, Need for Nebulizer Therapy and Monitoring of Response, Risk of Complication if Not Cared For in Hospital, Risk of Diagnosis Which Will Require Inpatient Eval/Care/Monitoring - Plan Summary Plan Summary: consult pulmonary
[2018-03-26] MEDS: IPRATROPIUM/ALBUTEROL 0.5-2.5 MG/3 ML AMPUL NEB SCH ×4 (08:53→19:55)
[2018-03-26] MEDS: FAMOTIDINE 20 MG TABLET PO SCH ×2 (11:26→21:30)
[2018-03-26] MEDS: AMLODIPINE BESYLATE 10 MG TABLET PO SCH (11:26)
[2018-03-26] MEDS: SERTRALINE HCL 50 MG TABLET PO SCH (11:26)
[2018-03-26] MEDS: LISINOPRIL 10 MG TABLET PO SCH (11:26)
[2018-03-26] MEDS: ROFLUMILAST 500 MCG TABLET PO SCH (11:26)
[2018-03-26] MEDS: PREDNISONE 10 MG TABLET PO SCH ×2 (11:26→18:03)
[2018-03-26] MEDS: ENOXAPARIN SODIUM INJ 30 MG/0.3 ML DISP.SYRIN SUBCUT SCH (11:27)
[2018-03-27] MEDS: IPRATROPIUM/ALBUTEROL 0.5-2.5 MG/3 ML AMPUL NEB SCH ×6 (00:27→20:28)
[2018-03-27 05:16] LABS: BLOOD UREA NITROGEN 47 mg/dL (7-20); CALCIUM 8.2 mg/dL (8.4-10.2); GLUCOSE 112 mg/dL (75-110); POTASSIUM 4.8 mmol/L (3.6-5.0)
[2018-03-27 05:22] LABS: CARBON DIOXIDE 35 mmol/L (22-30); CHLORIDE 100 mmol/L (98-107); SODIUM 136.7 mmol/L (137-145)
[2018-03-27 05:32] LABS: ANION GAP 2 (5-19)
--- NOTE | 2018-03-27 08:01 | PDOC PROGRESS REPORT ---
Subjective Progress Note for:: 03/27/18 Subjective:: still dyspnea Reason For Visit: CHRONIC RESPIRATORY FAILURE Physical Exam Vital Signs: Temp Pulse Resp BP Pulse Ox 97.4 F 92 15 114/59 L 92 03/27/18 03:25 03/27/18 06:45 03/27/18 04:16 03/27/18 03:25 03/27/18 04:16 Intake & Output 03/25/18 03/26/18 03/27/18 07:59 07:59 07:59 Intake Total 1274 Output Total 400 150 Balance -400 1124 Weight 145 lb 4.554 oz 143 lb 4.807 oz General appearance: PRESENT: no acute distress Respiratory exam: PRESENT: clear to auscultation ginger, prolonged expiratory phas Cardiovascular exam: ABSENT: diastolic murmur, irregular rhythm, systolic murmur Murmur grade: 1 GI/Abdominal exam: ABSENT: tenderness Extremities exam: ABSENT: pedal edema Neurological exam: PRESENT: oriented to situation Psychiatric exam: PRESENT: anxious Results Laboratory Results: 03/25/18 19:35 03/27/18 04:35 03/27/18 04:35 Sodium 136.7 L Potassium 4.8 Chloride 100 Carbon Dioxide 35 H Anion Gap 2 L BUN 47 H Creatinine 1.00 Est GFR ( Amer) > 60 Est GFR (Non-Af Amer) 56 L Glucose 112 H Calcium 8.2 L Impressions: Chest X-Ray 03/25/18 19:59 IMPRESSION: NO ACUTE RADIOGRAPHIC FINDING IN THE CHEST. Chest/Abdomen CTA 03/25/18 21:58 IMPRESSION: Negative for pulmonary embolus or thoracic aortic aneurysm/dissection. Atheromatous changes of the distal descending thoracic aorta and more significant atheromatous changes in the visualized upper abdominal aorta. Cardiomegaly. Small pericardial effusion. Partial visualization of what appears to be a severely atrophic right kidney. The lungs are clear TECHNICAL DOCUMENTATION: Quality ID # 436: Final reports with documentation of one or more dose reduction techniques (e.g., Automated exposure control, adjustment of the mA and/or kV according to patient size, use of iterative reconstruction technique) copyright 2011 [employer]- All Rights Reserved Assessment & Plan - Diagnosis (1) Acute on chronic respiratory failure with hypercapnia Is this a current diagnosis for this admission?: Yes Plan: Dr Allen away. Consult Dr Hernández. (2) Panacinar emphysema Is this a current diagnosis for this admission?: Yes Plan: pft pending (3) Chronic cor pulmonale Is this a current diagnosis for this admission?: Yes (4) Chronic diastolic heart failure Is this a current diagnosis for this admission?: Yes (5) Essential (primary) hypertension Is this a current diagnosis for this admission?: Yes (6) Atherosclerosis of [place] arteries of extremities with intermittent claudication, right leg Is this a current diagnosis for this admission?: Yes (7) Mixed hyperlipidemia Is this a current diagnosis for this admission?: Yes - Inpatient Certification Medical Necessity: Failure to Improve With Outpatient Therapy, Significant Comorbidiites Make Outpatient Treatment Too Risky, Need Close Monitoring Due to Risk of Patient Decompensation, Need For Continuous Telemetry Monitoring, Need for Nebulizer Therapy and Monitoring of Response, Risk of Complication if Not Cared For in Hospital, Risk of Diagnosis Which Will Require Inpatient Eval/Care/Monitoring
[2018-03-27] MEDS: ENOXAPARIN SODIUM INJ 30 MG/0.3 ML DISP.SYRIN SUBCUT SCH (09:37)
[2018-03-27] MEDS: LISINOPRIL 10 MG TABLET PO SCH (09:39)
[2018-03-27] MEDS: SERTRALINE HCL 50 MG TABLET PO SCH (09:39)
[2018-03-27] MEDS: AMLODIPINE BESYLATE 10 MG TABLET PO SCH (09:39)
[2018-03-27] MEDS: ROFLUMILAST 500 MCG TABLET PO SCH (09:40)
[2018-03-27] MEDS: FAMOTIDINE 20 MG TABLET PO SCH ×2 (09:40→22:09)
[2018-03-27] MEDS: PREDNISONE 10 MG TABLET PO SCH ×2 (09:40→18:36)
[2018-03-27] MEDS ORDERED: TIOTROPIUM BROMIDE DPI 5 CAP/KIT (18 MCG/CAP) IH SCH (10:00)
--- NOTE | 2018-03-27 14:52 | EKG REPORT ---
SEVERITY:- ABNORMAL ECG - SINUS TACHYCARDIA WITH APCs PROBABLE LEFT ATRIAL ABNORMALITY CONSIDER ANTERIOR INFARCT : Confirmed by: Yo Vásquez 27-Mar-2018 14:52:04
[2018-03-27] MEDS ORDERED: METHYLPREDNISOLONE INJ 40 MG/1 ML SDV IV SCH (22:00)
[2018-03-27] MEDS: METHYLPREDNISOLONE INJ 125 MG/2 ML SDV IV SCH (22:08)
[2018-03-27] MEDS: LEVOFLOXACIN 500 MG/D5W RTU 500 MG/100 ML RTUPB IV SCH (22:09)
[2018-03-27] MEDS: FLUTICASONE/SALMETEROL DISKUS 500-50 MCG/DOSE IH SCH (22:36)
[2018-03-27] MEDS: TIOTROPIUM BROMIDE DPI 5 CAP/KIT (18 MCG/CAP) IH SCH (22:37)
[2018-03-28] MEDS: IPRATROPIUM/ALBUTEROL 0.5-2.5 MG/3 ML AMPUL NEB SCH ×7 (01:09→23:41)
[2018-03-28] MEDS: METHYLPREDNISOLONE INJ 125 MG/2 ML SDV IV SCH (05:05)
[2018-03-28 06:54] LABS: ANION GAP 8 (5-19); BLOOD UREA NITROGEN 38 mg/dL (7-20); CALCIUM 8.9 mg/dL (8.4-10.2); CARBON DIOXIDE 32 mmol/L (22-30); CHLORIDE 96 mmol/L (98-107); GLUCOSE 122 mg/dL (75-110); POTASSIUM 5.1 mmol/L (3.6-5.0); SODIUM 135.8 mmol/L (137-145)
--- NOTE | 2018-03-28 07:18 | CONSULTATION REPORT E ---
Consultation Report NAME: SWETHA VILA : 1950 AGE: 67Y DATE: 03/27/2018 ROOM: 318 B TO: GILDARDO SESAY M.D. FROM: ELIAN GREEN M.D. Requesting Physician HISTORY OF PRESENT ILLNESS: The patient is a 67-year-old female who came in yesterday for increased shortness of breath, worsening over the last few hours prior to admission. She has been increasingly sick over the last 8 days. The patient was brought to the emergency room. The patient denies any history of bronchial asthma, COPD, and denies any use of any inhaler but she has been smoking since she was 15 years old, about a pack a day until this admission. Denies any fever, chills, any purulent sputum production or hemoptysis or chest pain. PAST MEDICAL HISTORY: 1. History of congestive heart failure. 2. Hypertension. 3. Peripheral vascular disease. REVIEW OF SYSTEMS: CARDIOPULMONARY: Reported to have COPD, pneumonia, and history of respiratory failure. HEAD, EYES, EAR, NOSE, MOUTH, AND THROAT: None. Denies any visual changes. Denies any sore throat or throat pain. Denies any neck pain or headache. CENTRAL NERVOUS SYSTEM: No history of seizures or syncopal episodes or focal weakness. GASTROINTESTINAL: No nausea, vomiting, diarrhea. GENITOURINARY: No dysuria, hematuria. EXTREMITIES: No joint swelling, no cellulitis. SURGICAL HISTORY: Tubal ligation. SOCIAL HISTORY: Smokes a pack a day. Lives alone. Denies any illicit drug use or alcohol abuse. FAMILY HISTORY: CVA and diabetes. ALLERGIES: 1. CEPHALOSPORINS. 2. IODINE. 3. NIACIN. 4. SHELLFISH. PHYSICAL EXAMINATION: GENERAL: The patient is awake, alert, oriented x3. VITAL SIGNS: Temperature of 98 degrees Fahrenheit with a T-max of 98.7, pulse is 91, blood pressure is 151/70, respiratory is 30, saturation 97% on BiPAP of 12/6, 25-35% respiratory rate about 21. EYES: No jaundice or pallor. EARS, NOSE, AND THROAT: No ear drainage. No nasal discharge. CHEST AND LUNGS: Anterior wheezing bilaterally. CARDIOVASCULAR: S1, S2 distinct. Normal rate and regular rhythm. ABDOMEN: Flabby, positive bowel sounds, soft, nontender. EXTREMITIES: No joint swelling, no cellulitis. LABORATORY DATA: CBC done today showed a white count of 10.6, hemoglobin is 17.2, hematocrit is 50.9, platelet count is 111. ABG done on admission 03/25, showed pH of 7.34, pCO2 of 59.9, and pO2 is 99.8 and oxygen saturation is 97% on 50% FiO2. Chemistry done today showed sodium is 136, potassium 4.8, chloride 100, CO2 is 35, BUN 47, creatinine is 1, glucose 92, and calcium is 8.2. NT-BNP was 1900. Troponin I 0.22. IMAGING STUDIES: Had a chest CT on this admission 03/25/2018 showed absence of pulmonary embolism, no signs of pneumonia or pulmonary emboli noted, no signs of pulmonary nodules noted. ASSESSMENT: 1. COPD/bronchial asthma in acute COPD exacerbation. 3. Acute respiratory failure requiring BiPAP therapy, appeared to be stable. 4. History of heavy smoking since she was about 16 years old or about for the last 50 years. PLAN/RECOMMENDATION: 1. We will start the patient on Advair 500/disk haler 1 puff daily, first dose now. Treating patient with COPD/asthma, empiric treatment for COPD/asthma exacerbation. 2. Spiriva inhaler, one capsule daily. 3. Will receive prednisone tablet and change to IV Solu-Medrol at 80 mg every 8 hours. 4. Start the patient on Solu-Medrol 80 mg IV every 8 hours. 5. Continue to diurese one tablet daily. 6. Will follow patient. DICTATING PHYSICIAN: GILDARDO SESAY MD,NEYMAR,MPH [id number] PHY#: [id number] ID: [id number] JOB#: [id number] ACCT: [id number] cc:GILDARDO SESAY M.D. > JESUS
[2018-03-28] MEDS: SERTRALINE HCL 50 MG TABLET PO SCH (10:40)
[2018-03-28] MEDS: FUROSEMIDE 20 MG TABLET PO SCH (10:40)
[2018-03-28] MEDS: AMLODIPINE BESYLATE 10 MG TABLET PO SCH (10:40)
[2018-03-28] MEDS: LISINOPRIL 10 MG TABLET PO SCH (10:40)
[2018-03-28] MEDS: FLUTICASONE/SALMETEROL DISKUS 500-50 MCG/DOSE IH SCH ×2 (10:41→22:27)
[2018-03-28] MEDS: FAMOTIDINE 20 MG TABLET PO SCH ×2 (10:41→22:27)
[2018-03-28] MEDS: ROFLUMILAST 500 MCG TABLET PO SCH (10:42)
[2018-03-28] MEDS: TIOTROPIUM BROMIDE DPI 5 CAP/KIT (18 MCG/CAP) IH SCH (10:42)
[2018-03-28] MEDS: ENOXAPARIN SODIUM INJ 30 MG/0.3 ML DISP.SYRIN SUBCUT SCH (10:44)
[2018-03-28 12:53] LABS: HEMATOCRIT 47.4 % (36.0-47.0); HEMOGLOBIN 15.9 g/dL (12.0-15.5); MEAN CORPUSCULAR HEMOGLOBIN 31.1 pg (27.0-33.4); MEAN CORPUSCULAR HGB CONC 33.5 g/dL (32.0-36.0); MEAN CORPUSCULAR VOLUME 93 fl (80-97); RED BLOOD COUNT 5.11 10^6/uL (3.72-5.28); RED CELL DISTRIBUTION WIDTH 13.2 % (11.5-14.0); WHITE BLOOD COUNT 8.8 10^3/uL (4.0-10.5)
[2018-03-28 13:02] LABS: PLATELET COUNT 86 10^3/uL (150-450)
[2018-03-28 13:12] LABS: ABSOLUTE MONOCYTES # (MANUAL) 0.2 10^3/uL (0.1-1.4); ABSOLUTE NEUTROPHILS# (MANUAL) 8.6 10^3/uL (1.7-8.2); BAND NEUTROPHILS % (MANUAL) 1 % (3-5); BASOPHILS % (MANUAL) 0 % (0-2); EOSINOPHILS % (MANUAL) 0 % (0-6); LYMPHOCYTES % (MANUAL) 0 % (13-45); MONOCYTES % (MANUAL) 2 % (3-13); SEGMENTED NEUTROPHILS % (MAN) 97 % (42-78); TOTAL CELLS COUNTED 100
[2018-03-28 13:14] LABS: PLATELET COMMENT DECREASED
[2018-03-28] MEDS: METHYLPREDNISOLONE INJ 40 MG/1 ML SDV IV SCH ×2 (13:50→22:28)
[2018-03-28] MEDS: ALPRAZOLAM 0.25 MG TABLET PO PRN (13:50)
--- NOTE | 2018-03-28 13:53 | PDOC PROGRESS REPORT ---
Subjective Progress Note for:: 03/28/18 Subjective:: needs bipap after walking. Reason For Visit: CHRONIC RESPIRATORY FAILURE Physical Exam Vital Signs: Temp Pulse Resp BP Pulse Ox 97.6 F 101 H 22 H 166/80 H 93 03/28/18 07:22 03/28/18 07:22 03/28/18 07:22 03/28/18 07:22 03/28/18 07:22 Intake & Output 03/27/18 03/28/18 03/29/18 07:59 07:59 07:59 Intake Total 1274 740 Output Total 150 Balance 1124 740 Weight 143 lb 4.807 oz 143 lb 4.807 oz General appearance: PRESENT: no acute distress Respiratory exam: PRESENT: clear to auscultation ginger Cardiovascular exam: ABSENT: diastolic murmur, irregular rhythm, systolic murmur GI/Abdominal exam: ABSENT: tenderness Extremities exam: ABSENT: pedal edema Neurological exam: PRESENT: oriented to situation Psychiatric exam: PRESENT: anxious Results Laboratory Results: 03/25/18 19:35 03/28/18 05:08 03/28/18 05:08 Sodium 135.8 L Potassium 5.1 H Chloride 96 L Carbon Dioxide 32 H Anion Gap 8 BUN 38 H Creatinine 1.00 Est GFR ( Amer) > 60 Est GFR (Non-Af Amer) 56 L Glucose 122 H Calcium 8.9 Impressions: Chest X-Ray 03/25/18 19:59 IMPRESSION: NO ACUTE RADIOGRAPHIC FINDING IN THE CHEST. Chest/Abdomen CTA 03/25/18 21:58 IMPRESSION: Negative for pulmonary embolus or thoracic aortic aneurysm/dissection. Atheromatous changes of the distal descending thoracic aorta and more significant atheromatous changes in the visualized upper abdominal aorta. Cardiomegaly. Small pericardial effusion. Partial visualization of what appears to be a severely atrophic right kidney. The lungs are clear TECHNICAL DOCUMENTATION: Quality ID # 436: Final reports with documentation of one or more dose reduction techniques (e.g., Automated exposure control, adjustment of the mA and/or kV according to patient size, use of iterative reconstruction technique) copyright 2011 [employer]- All Rights Reserved Assessment & Plan - Diagnosis (1) Acute on chronic respiratory failure with hypercapnia Is this a current diagnosis for this admission?: Yes Plan: Sergey resumed levaquin and gave steroid IV. (2) Panacinar emphysema Is this a current diagnosis for this admission?: Yes (3) Chronic cor pulmonale Is this a current diagnosis for this admission?: Yes (4) Chronic diastolic heart failure Is this a current diagnosis for this admission?: Yes Plan: bun38 down. K5.1 up. Resume furosemide 20qd. (5) Essential (primary) hypertension Is this a current diagnosis for this admission?: Yes (6) Atherosclerosis of [place] arteries of extremities with intermittent c laudication, right leg Is this a current diagnosis for this admission?: Yes (7) Mixed hyperlipidemia Is this a current diagnosis for this admission?: Yes
[2018-03-28] MEDS ORDERED: METHYLPREDNISOLONE INJ 125 MG/2 ML SDV IV SCH (14:00)
--- NOTE | 2018-03-28 16:27 | PROGRESS NOTE E ---
Progress Note NAME: SWETHA VILA : 1950 AGE: 67Y DATE: 03/28/2018 ROOM: 318 SUBJECTIVE: The patient is a 67-year-old female who came in with severe respiratory distress and acute respiratory failure, requiring BiPAP therapy. The patient was started on Spiriva and Advair yesterday. Today, the patient claims that she is feeling a lot better. Earlier, on 2 liters of nasal cannula, her saturation is about 99%. There is no nausea, vomiting, or diarrhea. Denies any increased coughing, clearing of the throat. Her breathing is better. OBJECTIVE: GENERAL: Awake, alert, oriented x3. VITAL SIGNS: Temperature 97.8, blood pressure 155/79, pulse rate 107, respiratory rate 28, saturation 98% on BiPAP 12/6, FiO2 of 35%. HEENT: Eyes: No conjunctival pallor. ENT: No ear drainage, no nasal discharge. CHEST AND LUNGS: No wheezing, no rhonchi, no crackles. CARDIOVASCULAR: S1, S2 distinct. No murmur. ABDOMEN: Flabby. Positive bowel sounds. Soft, nondistended, nontender. EXTREMITIES: No joint swelling or cellulitis. LABORATORY: Chemistry done today showed sodium 135, potassium 5.1, chloride 96, CO2 of 32, BUN 38, creatinine 1. Glucose 122. Calcium 8.9. ASSESSMENT: 1. ACUTE RESPIRATORY FAILURE REQUIRING NONINVASIVE MECHANICAL VENTILATION ON BIPAP THERAPY. Improving and stable. 2. CHRONIC OBSTRUCTIVE PULMONARY DISEASE/BRONCHIAL ASTHMA IN ACUTE EXACERBATION. Currently stable and not in acute bronchospasm. 3. SEVERE ANXIETY. PLAN: 1. May consider oxygen therapy via nasal cannula today to keep saturation 91-94%. May resume BiPAP if patient becomes more short of breath or in severe respiratory distress. 2. Continue Spiriva inhaler and Advair 500 inhaler. 3. Will start xanax 0.25 mg 1 tablet p.o. twice daily orn today. Will consider tapering it off tomorrow to once daily if the patient is doing well or becoming more sedated. Will taper the Solu-Medrol dose to 40 mg IV every 8 hours today. DICTATING PHYSICIAN: GILDARDO SESAY MD,NEYMAR,MPH [id number] PHY#: [id number] ID: [id number] JOB#: [id number] ACCT: [id number] cc: > MTDD
[2018-03-28] MEDS: LEVOFLOXACIN 500 MG/D5W RTU 500 MG/100 ML RTUPB IV SCH (22:26)
[2018-03-29] MEDS: IPRATROPIUM/ALBUTEROL 0.5-2.5 MG/3 ML AMPUL NEB SCH ×5 (04:12→20:01)
[2018-03-29] MEDS: METHYLPREDNISOLONE INJ 40 MG/1 ML SDV IV SCH ×3 (05:15→21:22)
[2018-03-29 06:39] LABS: ANION GAP 7 (5-19); BLOOD UREA NITROGEN 36 mg/dL (7-20); CALCIUM 8.7 mg/dL (8.4-10.2); CARBON DIOXIDE 30 mmol/L (22-30); CHLORIDE 96 mmol/L (98-107); GLUCOSE 110 mg/dL (75-110); POTASSIUM 4.5 mmol/L (3.6-5.0); SODIUM 133.1 mmol/L (137-145)
--- NOTE | 2018-03-29 07:52 | PDOC PROGRESS REPORT ---
Subjective Subjective:: says better but nurse says desats if off bipap an hour. Does not understand why she cant live alone. Oxygen tube came loose on way home just before readmission. Does not know if she wants cpr & vent when worse. Lives with cat. Reason For Visit: CHRONIC RESPIRATORY FAILURE Physical Exam Vital Signs: Temp Pulse Resp BP Pulse Ox 97.9 F 94 20 122/98 H 96 03/29/18 03:36 03/29/18 04:14 03/29/18 04:14 03/29/18 03:36 03/29/18 04:14 Intake & Output 03/27/18 03/28/18 03/29/18 07:59 07:59 07:59 Intake Total 0879 863 7839 Output Total 150 Balance 0320 426 0906 Weight 143 lb 4.807 oz 143 lb 4.807 oz 146 lb 2.664 oz General appearance: PRESENT: no acute distress Respiratory exam: PRESENT: prolonged expiratory phas, wheezes - minimal Cardiovascular exam: ABSENT: diastolic murmur, irregular rhythm, systolic murmur GI/Abdominal exam: ABSENT: mass, organolmegaly, tenderness Extremities exam: ABSENT: pedal edema Neurological exam: PRESENT: oriented to situation Psychiatric exam: PRESENT: anxious Results Laboratory Results: 03/28/18 05:08 03/29/18 04:52 Abnormal - 24 hr 03/28/18 03/29/18 05:08 04:52 Hgb 15.9 H Hct 47.4 H Plt Count 86 L Seg Neuts % (Manual) 97 H Band Neutrophils % 1 L Lymphocytes % (Manual) 0 L Monocytes % (Manual) 2 L Abs Neuts (Manual) 8.6 H Abs Lymphs (Manual) 0.0 L Sodium 133.1 L Chloride 96 L BUN 36 H Est GFR (Non-Af Amer) 56 L Impressions: Chest X-Ray 03/25/18 19:59 IMPRESSION: NO ACUTE RADIOGRAPHIC FINDING IN THE CHEST. Chest/Abdomen CTA 03/25/18 21:58 IMPRESSION: Negative for pulmonary embolus or thoracic aortic aneurysm/dissection. Atheromatous changes of the distal descending thoracic aorta and more significant atheromatous changes in the visualized upper abdominal aorta. Cardiomegaly. Small pericardial effusion. Partial visualization of what appears to be a severely atrophic right kidney. The lungs are clear TECHNICAL DOCUMENTATION: Quality ID # 436: Final reports with documentation of one or more dose reduction techniques (e.g., Automated exposure control, adjustment of the mA and/or kV according to patient size, use of iterative reconstruction technique) copyright 2011 [employer]- All Rights Reserved Assessment & Plan - Diagnosis (1) Acute on chronic respiratory failure with hypercapnia Is this a current diagnosis for this admission?: Yes Plan: BIPAP dependent. Suggested consider DNR vs CPR decision. Time will tell if extra steroids & levaquin will help. Needs rehab then pulmonary rehab if can get to [place]. Mother leves across street but panics too. (2) Panacinar emphysema Is this a current diagnosis for this admission?: Yes (3) Chronic cor pulmonale Is this a current diagnosis for this admission?: Yes (4) Chronic diastolic heart failure Is this a current diagnosis for this admission?: Yes (5) Essential (primary) hypertension Is this a current diagnosis for this admission?: Yes (6) Atherosclerosis of [place] arteries of extremities with intermittent claudication, right leg Is this a current diagnosis for this admission?: Yes (7) Mixed hyperlipidemia Is this a current diagnosis for this admission?: Yes
[2018-03-29] MEDS: SERTRALINE HCL 50 MG TABLET PO SCH (09:10)
[2018-03-29] MEDS: FAMOTIDINE 20 MG TABLET PO SCH ×2 (09:10→21:21)
[2018-03-29] MEDS: LISINOPRIL 10 MG TABLET PO SCH (09:10)
[2018-03-29] MEDS: ROFLUMILAST 500 MCG TABLET PO SCH (09:11)
[2018-03-29] MEDS: TIOTROPIUM BROMIDE DPI 5 CAP/KIT (18 MCG/CAP) IH SCH (09:11)
[2018-03-29] MEDS: FUROSEMIDE 20 MG TABLET PO SCH (09:11)
[2018-03-29] MEDS: FLUTICASONE/SALMETEROL DISKUS 500-50 MCG/DOSE IH SCH ×2 (09:11→21:23)
[2018-03-29] MEDS: AMLODIPINE BESYLATE 10 MG TABLET PO SCH (09:11)
[2018-03-29] MEDS: ALPRAZOLAM 0.25 MG TABLET PO PRN ×2 (09:13→21:21)
[2018-03-29] MEDS: ENOXAPARIN SODIUM INJ 30 MG/0.3 ML DISP.SYRIN SUBCUT SCH (09:13)
--- NOTE | 2018-03-29 18:02 | PROGRESS NOTE E ---
Progress Note NAME: SWETHA VILA : 1950 AGE: 67Y DATE: 03/29/2018 ROOM: 318 SUBJECTIVE: Patient is a 67-year-old female who came in with acute respiratory failure requiring noninvasive mechanical ventilation on BiPAP therapy. The patient has been doing okay. Patient has been able to tolerate nasal cannula oxygen therapy today for about 3 hours. Patient's nurse claimed the patient became tachypneic and short of breath, desaturating to the lower 90's this morning, and then she was placed back on the BiPAP therapy. Patient did not take the Xanax yesterday. Patient's nurse claimed that she did not sleep well throughout the night. Gave her Xanax 0.25 mg tablet at noon today. Patient has been sleeping for the last 4 or 5 hours. Patient tolerated Advair 500 mcg through respiratory inhaler. OBJECTIVE: GENERAL: Patient is sleepy, afebrile, not in apparent respiratory distress. VITAL SIGNS: Temperature of 98.1, heart rate is 82, respiratory rate 15, saturating 93%, FiO2 is 35%. EYES: No jaundice or pallor. EARS, NOSE AND THROAT: No ear drainage. No nasal discharge. CHEST AND LUNGS: No wheezing, no rhonchi, no coarse crackles. CARDIOVASCULAR: S1, S2 distinct. No murmur. Regular rhythm. ABDOMEN: Flabby. Positive bowel sounds. Soft, nondistended, nontender. EXTREMITIES: No joint swelling or cellulitis. LABORATORY DATA: No CBC done today. Chemistry done this morning showed sodium is 132, potassium 4.5, chloride 96, CO2 is 30, BUN is 36, creatinine 0.99. Glucose 110 and carbon dioxide 8.7. ASSESSMENT: 1. ACUTE ON CHRONIC RESPIRATORY FAILURE REQUIRING NONINVASIVE MECHANICAL VENTILATION OR BIPAP THERAPY. 2. COPD/BRONCHIAL ASTHMA. Currently stable and not in acute bronchospasm. 3. SEVERE ANXIETY. PLAN/RECOMMENDATIONS: 1. Will do an ABG tomorrow morning on room air. 2. Will continue BiPAP therapy as needed, same settings for the patient. 3. Continue the inhalers. 4. Continue antibiotics. DICTATING PHYSICIAN: GILDARDO SESAY MD,NEYMAR,MPH [id number] PHY#: [id number] ID: [id number] JOB#: [id number] ACCT: [id number] cc: > [facility]
[2018-03-29] MEDS: LEVOFLOXACIN 500 MG/D5W RTU 500 MG/100 ML RTUPB IV SCH (21:22)
[2018-03-30] MEDS: IPRATROPIUM/ALBUTEROL 0.5-2.5 MG/3 ML AMPUL NEB SCH ×6 (00:07→20:23)
[2018-03-30] MEDS: METHYLPREDNISOLONE INJ 40 MG/1 ML SDV IV SCH ×3 (05:11→21:23)
--- NOTE | 2018-03-30 08:08 | PDOC PROGRESS REPORT ---
Subjective Progress Note for:: 03/30/18 Subjective:: rested better. Off bipap for meals Reason For Visit: CHRONIC RESPIRATORY FAILURE Physical Exam Vital Signs: Temp Pulse Resp BP Pulse Ox 98.1 F 91 22 H 106/63 96 03/30/18 07:18 03/30/18 07:18 03/30/18 07:18 03/30/18 07:18 03/30/18 07:18 Pulse Oximeter Continuous Start: 03/29/18 17:32 Freq: RTQ4 Status: Active Protocol: Document 03/30/18 04:29 CMI (Rec: 03/30/18 04:30 CMI [id number]) Pulse Oximetry Assessment Oxygen Saturation (92-100) 97 Oxygen Delivery Method Bi-pap Fraction of Inspired Oxygen (FIO2) 35 Equipment Usage Equipment in Use Continuous SpO2 Machine # 13 Intake & Output 03/29/18 03/30/18 03/31/18 07:59 07:59 07:59 Intake Total 1043 1012 Output Total 700 Balance 1043 312 Weight 146 lb 2.664 oz 147 lb 4.301 oz General appearance: PRESENT: no acute distress Respiratory exam: PRESENT: prolonged expiratory phas, wheezes - mild Cardiovascular exam: ABSENT: diastolic murmur, irregular rhythm, systolic murmur GI/Abdominal exam: ABSENT: mass, organolmegaly, tenderness Extremities exam: ABSENT: pedal edema Neurological exam: PRESENT: oriented to situation Psychiatric exam: PRESENT: anxious Results Laboratory Results: 03/28/18 05:08 03/29/18 04:52 Impressions: Chest X-Ray 03/25/18 19:59 IMPRESSION: NO ACUTE RADIOGRAPHIC FINDING IN THE CHEST. Chest/Abdomen CTA 03/25/18 21:58 IMPRESSION: Negative for pulmonary embolus or thoracic aortic aneurysm/dissection. Atheromatous changes of the distal descending thoracic aorta and more significant atheromatous changes in the visualized upper abdominal aorta. Cardiomegaly. Small pericardial effusion. Partial visualization of what appears to be a severely atrophic right kidney. The lungs are clear TECHNICAL DOCUMENTATION: Quality ID # [id number]: Final reports with documentation of one or more dose reduction techniques (e.g., Automated exposure control, adjustment of the mA and/or kV according to patient size, use of iterative reconstruction technique) copyright 2011 [employer]- All Rights Reserved Assessment & Plan - Diagnosis (1) Acute on chronic respiratory failure with hypercapnia Is this a current diagnosis for this admission?: Yes Plan: ABG pending (2) Panacinar emphysema Is this a current diagnosis for this admission?: Yes Plan: pft dlco have been ordered since last week (3) Chronic cor pulmonale Is this a current diagnosis for this admission?: Yes (4) Chronic diastolic heart failure Is this a current diagnosis for this admission?: Yes Plan: Na133. Suspect some IADH (5) Essential (primary) hypertension Is this a current diagnosis for this admission?: Yes (6) Atherosclerosis of [place] arteries of extremities with intermittent claudication, right leg Is this a current diagnosis for this admission?: Yes (7) Mixed hyperlipidemia Is this a current diagnosis for this admission?: Yes - Inpatient Certification Medical Necessity: Failure to Improve With Outpatient Therapy, Significant Comorbidiites Make Outpatient Treatment Too Risky, Need Close Monitoring Due to Risk of Patient Decompensation, Need For Continuous Telemetry Monitoring, Need for Nebulizer Therapy and Monitoring of Response, Need for IV Antibiotics, Risk of Complication if Not Cared For in Hospital, Risk of Diagnosis Which Will Require Inpatient Eval/Care/Monitoring
[2018-03-30] MEDS: ROFLUMILAST 500 MCG TABLET PO SCH (10:59)
[2018-03-30] MEDS: ALPRAZOLAM 0.25 MG TABLET PO PRN ×2 (11:00→21:27)
[2018-03-30] MEDS: LISINOPRIL 10 MG TABLET PO SCH (11:00)
[2018-03-30] MEDS: FUROSEMIDE 20 MG TABLET PO SCH (11:00)
[2018-03-30] MEDS: FLUTICASONE/SALMETEROL DISKUS 500-50 MCG/DOSE IH SCH ×2 (11:00→21:26)
[2018-03-30] MEDS: FAMOTIDINE 20 MG TABLET PO SCH ×2 (11:00→21:27)
[2018-03-30] MEDS: AMLODIPINE BESYLATE 10 MG TABLET PO SCH (11:00)
[2018-03-30] MEDS: SERTRALINE HCL 50 MG TABLET PO SCH (11:00)
[2018-03-30] MEDS: TIOTROPIUM BROMIDE DPI 5 CAP/KIT (18 MCG/CAP) IH SCH (11:01)
[2018-03-30] MEDS: ENOXAPARIN SODIUM INJ 30 MG/0.3 ML DISP.SYRIN SUBCUT SCH (11:02)
[2018-03-30] MEDS: LEVOFLOXACIN 500 MG/D5W RTU 500 MG/100 ML RTUPB IV SCH (21:22)
[2018-03-31] MEDS: IPRATROPIUM/ALBUTEROL 0.5-2.5 MG/3 ML AMPUL NEB SCH ×6 (00:13→20:27)
--- NOTE | 2018-03-31 00:17 | PROGRESS NOTE E ---
Progress Note NAME: SWETHA VILA : 1950 AGE: 67Y DATE: 03/30/2018 ROOM: 318 SUBJECTIVE: The patient is a 67-year-old female who came in with acute respiratory failure requiring BiPAP therapy, and COPD/bronchial asthma in acute exacerbation. Currently feeling a lot better. The patient is said to be sleeping better. The patient is taking Xanax for her anxiety. Today, the patient tolerated oxygen therapy by nasal cannula and the patient was able to sleep using the nasal cannula. The saturation was 99% on 4 liters per minute. No vomiting, no increased cough, hemoptysis, or chest pain. OBJECTIVE: GENERAL: The patient is awake, alert, oriented x3. VITAL SIGNS: Temperature 98.5, heart rate 95, blood pressure 152/58, respiratory rate 18. Saturation is 97%. BiPAP of 12/6 with FiO2 of 35%. HEENT: Eyes: No conjunctival pallor. ENT: No ear drainage noted, no nasal discharge. CHEST AND LUNGS: No wheezing, no rhonchi, no crackles. CARDIOVASCULAR: S1, S2 distinct. ABDOMEN: Flabby. Positive bowel sounds. Soft, nondistended, nontender. EXTREMITIES: No joint swelling or cellulitis. LABORATORY: CBC done or chemistry done. ASSESSMENT: 1. ACUTE RESPIRATORY FAILURE REQUIRING BIPAP THERAPY. Appears to be improving and resolving. 2. SEVERE EXERTIONAL HYPOXEMIA. - possible underlying cardiac etiology. PLAN: 1. Continue Advair 500 Diskhaler 1 puff twice daily. 2. Will consider changing IV Solu-Medrol to penicillin 10 mg p.o. daily. Continue Spiriva inhaler 1 capsule daily. Recommend pulmonary clinic followup in 3-4 weeks after hospital discharge. DICTATING PHYSICIAN: GILDARDO SESAY MD,NEYMAR,MPH [id number] PHY#: [id number] ID: [id number] JOB#: [id number] ACCT: [id number] cc: > MTDD
[2018-03-31] MEDS: METHYLPREDNISOLONE INJ 40 MG/1 ML SDV IV SCH ×3 (06:10→21:25)
--- NOTE | 2018-03-31 08:06 | PDOC PROGRESS REPORT ---
Subjective Progress Note for:: 03/31/18 Subjective:: needs bipap to use bedside commode. Sister arranging power of lead printer. Reason For Visit: CHRONIC RESPIRATORY FAILURE Physical Exam Vital Signs: Temp Pulse Resp BP Pulse Ox 97.5 F 91 25 H 116/60 93 03/31/18 07:16 03/31/18 07:16 03/31/18 07:16 03/31/18 07:16 03/31/18 07:16 Pulse Oximeter Continuous Start: 03/29/18 17:32 Freq: RTQ4 Status: Active Protocol: Document 03/31/18 04:08 LRU (Rec: 03/31/18 04:12 LRU [id number]) Pulse Oximetry Assessment Oxygen Saturation (92-100) 96 Oxygen Delivery Method Bi-pap Fraction of Inspired Oxygen (FIO2) 35 Equipment Usage Equipment in Use Continuous SpO2 Machine # 13 Intake & Output 03/29/18 03/30/18 03/31/18 07:59 07:59 07:59 Intake Total 1043 1012 1366 Output Total 700 Balance 8614 740 0096 Weight 146 lb 2.664 oz 147 lb 4.301 oz 146 lb 2.664 oz General appearance: PRESENT: no acute distress Respiratory exam: PRESENT: clear to auscultation ginger, prolonged expiratory phas Cardiovascular exam: ABSENT: diastolic murmur, irregular rhythm, systolic murmur GI/Abdominal exam: ABSENT: mass, organolmegaly, tenderness Extremities exam: ABSENT: pedal edema Neurological exam: PRESENT: oriented to situation Psychiatric exam: PRESENT: anxious Skin exam: PRESENT: other - eccymoses worse Results Laboratory Results: 03/28/18 05:08 03/29/18 04:52 03/25/18 03/25/18 19:35 19:35 Creatine Kinase 47 CK-MB (CK-2) 3.38 Troponin I 0.044 NT-Pro-B Natriuret Pep 1900 H Impressions: Chest X-Ray 03/25/18 19:59 IMPRESSION: NO ACUTE RADIOGRAPHIC FINDING IN THE CHEST. Chest/Abdomen CTA 03/25/18 21:58 IMPRESSION: Negative for pulmonary embolus or thoracic aortic aneurysm/dissection. Atheromatous changes of the distal descending thoracic aorta and more significant atheromatous changes in the visualized upper abdominal aorta. Cardiomegaly. Small pericardial effusion. Partial visualization of what appears to be a severely atrophic right kidney. The lungs are clear TECHNICAL DOCUMENTATION: Quality ID # 436: Final reports with documentation of one or more dose reduction techniques (e.g., Automated exposure control, adjustment of the mA and/or kV according to patient size, use of iterative reconstruction technique) copyright 2011 [employer]- All Rights Reserved Assessment & Plan - Diagnosis (1) Acute on chronic respiratory failure with hypercapnia Is this a current diagnosis for this admission?: Yes Plan: still bipap dependent. Not sure about dnr. Prognosis guarded. Not stable enough for SNF yet. (2) Panacinar emphysema Is this a current diagnosis for this admission?: Yes (3) Chronic cor pulmonale Is this a current diagnosis for this admission?: Yes (4) Chronic diastolic heart failure Is this a current diagnosis for this admission?: Yes Plan: bp lower. Stopped amlodipine. (5) Essential (primary) hypertension Is this a current diagnosis for this admission?: Yes (6) Atherosclerosis of [place] arteries of extremities with intermittent claudication, right leg Is this a current diagnosis for this admission?: Yes (7) Mixed hyperlipidemia Is this a current diagnosis for this admission?: Yes - Inpatient Certification Medical Necessity: Failure to Improve With Outpatient Therapy, Significant [place] rbidiites Make Outpatient Treatment Too Risky, Need Close Monitoring Due to Risk of Patient Decompensation, Need For Continuous Telemetry Monitoring, Need for Nebulizer Therapy and Monitoring of Response, Need for IV Antibiotics, Risk of Complication if Not Cared For in Hospital, Risk of Diagnosis Which Will Require Inpatient Eval/Care/Monitoring
[2018-03-31] MEDS: FLUTICASONE/SALMETEROL DISKUS 500-50 MCG/DOSE IH SCH ×2 (09:03→21:25)
[2018-03-31] MEDS: FUROSEMIDE 20 MG TABLET PO SCH (09:04)
[2018-03-31] MEDS: SERTRALINE HCL 50 MG TABLET PO SCH (09:04)
[2018-03-31] MEDS: LISINOPRIL 10 MG TABLET PO SCH (09:04)
[2018-03-31] MEDS: FAMOTIDINE 20 MG TABLET PO SCH ×2 (09:04→21:25)
[2018-03-31] MEDS: ROFLUMILAST 500 MCG TABLET PO SCH (09:04)
[2018-03-31] MEDS: ALPRAZOLAM 0.25 MG TABLET PO PRN ×2 (09:55→21:25)
[2018-03-31] MEDS: TIOTROPIUM BROMIDE DPI 5 CAP/KIT (18 MCG/CAP) IH SCH (12:19)
[2018-03-31] MEDS ORDERED: ALBUTEROL SULFATE 0.083% NEB 2.5 MG/3 ML AMPUL NEB PRN (16:11)
[2018-03-31] MEDS ORDERED: METHYLPREDNISOLONE INJ 40 MG/1 ML SDV IV SCH (16:15)
[2018-03-31] MEDS: LEVOFLOXACIN 500 MG/D5W RTU 500 MG/100 ML RTUPB IV SCH (21:25)
--- NOTE | 2018-03-31 23:27 | PROGRESS NOTE E ---
Progress Note NAME: SWETHA VILA : 1950 AGE: 67Y DATE: 03/31/2018 ROOM: 318 SUBJECTIVE: The patient is a 67-year-old female who came in with severe dyspnea and acute respiratory failure requiring noninvasive mechanical ventilation. Able to tolerate some nasal cannula yesterday. This morning was placed on nasal cannula on 6 liters, but the patient desaturated to 70s and upper 60s during exertion. Currently the patient denies any fever, chills, increasing cough, purulent sputum production, or hemoptysis and currently not wheezing. Denies any chest pain. No nausea, vomiting, diarrhea. OBJECTIVE: GENERAL: The patient is awake, alert, coherent, oriented x3, afebrile, not in apparent respiratory distress on BiPAP therapy at 12/6, FiO2 of 35%, saturating about 93%. EYES: No jaundice or pallor. EARS, NOSE, AND THROAT: No ear drainage. No nasal discharge. CHEST AND LUNGS: No wheezing, no rhonchi, no coarse crackles. CARDIOVASCULAR: S1, S2 distinct. Normal rate and regular rhythm. ABDOMEN: Flabby, positive bowel sounds, soft, nondistended, nontender. EXTREMITIES: No joint swelling, no cellulitis. LABORATORY DATA: No new labs; no CBC, no chemistry. ASSESSMENT: 1. ACUTE RESPIRATORY FAILURE REQUIRING NONINVASIVE MECHANICAL VENTILATION ON BIPAP THERAPY. Currently stable, not in acute bronchospasm. The patient cannot tolerate the nasal cannula, the patient is back on BiPAP therapy. 2. SEVERE EXERTIONAL DYSPNEA AND SEVERE HYPOXEMIA NOTED TODAY, DESPITE OPTIMAL COPD/BRONCHIAL ASTHMA THERAPY FOR THE LAST FEW DAYS. Currently the patient is not in bronchospasm at all. 3. SEVERE EXERTIONAL DYSPNEA AND HYPOXEMIA TO 67% ON 6 LITERS. May have underlying cardiac etiology. The patient requires a cardiac evaluation and follow up. There may be an underlying myocardial ischemia. Chest CT scan is unremarkable on the lung parenchyma and there is no pulmonary embolus or blood clots. Had an echo recently showing diastolic dysfunction. Had mild pulmonary hypertension, which cannot explain the patient's severe hypoxemia and severe exertional dyspnea on minimal physical exertion. PLAN/RECOMMENDATIONS: 1. We will continue the BiPAP therapy. 2. We will do a spirometry today at bedside and determine the level of obstruction of the airway. The patient definitely does not have emphysema based on the chest CT scan. The spirometry will help determine the severity of the obstructive airway defect if it is present. 3. We will continue the Advair 500 mcg DiskHaler one puff b.i.d. with the Spiriva inhaler 1 puff inhaled daily, and albuterol as needed. 4. Recommend cardiology consult to further evaluate the patient. The patient may need a cardiac cath because of severe hypoxemia and severe exertional dyspnea on minimal physical exertion. Echo is not accurate in determining the severity of the pulmonary hypertension or the patient may have underlying myocardial ischemia to account for the severe hypoxemia and exertional dyspnea. DICTATING PHYSICIAN: GILDARDO SESAY MD,NEYMAR,MPH [id number] PHY#: [id number] ID: [id number] JOB#: [id number] ACCT: [id number] cc: > MTDD
[2018-04-01] MEDS: IPRATROPIUM/ALBUTEROL 0.5-2.5 MG/3 ML AMPUL NEB SCH ×6 (00:17→20:18)
--- NOTE | 2018-04-01 06:52 | PDOC PROGRESS REPORT ---
Subjective Progress Note for:: 04/01/18 Subjective:: bad dyspnea without chest pain with a few steps Reason For Visit: CHRONIC RESPIRATORY FAILURE Physical Exam Vital Signs: Temp Pulse Resp BP Pulse Ox 98.1 F 95 26 H 111/60 93 03/31/18 23:37 04/01/18 04:10 04/01/18 04:10 03/31/18 23:37 04/01/18 04:10 Pulse Oximeter Continuous Start: 03/29/18 17:32 Freq: RTQ4 Status: Active Protocol: Document 04/01/18 04:10 LRU (Rec: 04/01/18 04:13 LRU [id number]) Pulse Oximetry Assessment Oxygen Saturation (92-100) 93 Oxygen Delivery Method Bi-pap Fraction of Inspired Oxygen (FIO2) 35 Equipment Usage Equipment in Use Continuous SpO2 Machine # 13 Intake & Output 03/30/18 03/31/18 04/01/18 07:59 07:59 07:59 Intake Total 1012 1366 1112 Output Total 700 Balance 312 1366 1112 Weight 147 lb 4.301 oz 146 lb 2.664 oz General appearance: PRESENT: no acute distress Respiratory exam: PRESENT: prolonged expiratory phas, wheezes - mild Murmur grade: 1 GI/Abdominal exam: ABSENT: mass, organolmegaly, tenderness Extremities exam: PRESENT: other - R forearm nontender edema 1+. No cords Neurological exam: PRESENT: oriented to situation Psychiatric exam: PRESENT: anxious Results Laboratory Results: 03/28/18 05:08 03/25/18 03/25/18 19:35 19:35 Creatine Kinase 47 CK-MB (CK-2) 3.38 Troponin I 0.044 NT-Pro-B Natriuret Pep 1900 H Impressions: Chest X-Ray 03/25/18 19:59 IMPRESSION: NO ACUTE RADIOGRAPHIC FINDING IN THE CHEST. Chest/Abdomen CTA 03/25/18 21:58 IMPRESSION: Negative for pulmonary embolus or thoracic aortic aneurysm/dissection. Atheromatous changes of the distal descending thoracic aorta and more significant atheromatous changes in the visualized upper abdominal aorta. Cardiomegaly. Small pericardial effusion. Partial visualization of what appears to be a severely atrophic right kidney. The lungs are clear TECHNICAL DOCUMENTATION: Quality ID # 436: Final reports with documentation of one or more dose reduction techniques (e.g., Automated exposure control, adjustment of the mA and/or kV according to patient size, use of iterative reconstruction technique) copyright 2011 [employer]- All Rights Reserved Assessment & Plan - Diagnosis (1) Acute on chronic respiratory failure with hypercapnia Is this a current diagnosis for this admission?: Yes (2) Panacinar emphysema Is this a current diagnosis for this admission?: Yes Plan: Sergey feels no emphysema on ct but may have asthma. Did bedside pft. No report yet. Suggested cardiology consult for extreme exertional hypoxia. (3) Chronic cor pulmonale Is this a current diagnosis for this admission?: Yes (4) Chronic diastolic heart failure Is this a current diagnosis for this admission?: Yes Plan: repeat Bnp (5) Essential (primary) hypertension Is this a current diagnosis for this admission?: Yes (6) Atherosclerosis of [place] arteries of extremities with intermittent claudication, right leg Is this a current diagnosis for this admission?: Yes (7) Mixed hyperlipidemia Is this a current diagnosis for this admission?: Yes - Inpatient Certification Medical Necessity: Failure to Improve With Outpatient Therapy, Significant Comorbidiites Make Outpatient Treatment Too Risky, Need Close Monitoring Due to Risk of Patient Decompensation, Need For Continuous Telemetry Monitoring, Need for Nebulizer Therapy and Monitoring of Response, Need for IV Antibiotics, Risk of Complication if Not Cared For in Hospital, Risk of Diagnosis Which Will Require Inpatient Eval/Care/Monitoring
[2018-04-01 07:04] LABS: POTASSIUM 5.3 mmol/L (3.6-5.0)
[2018-04-01 07:42] LABS: BLOOD UREA NITROGEN 38 mg/dL (7-20); CALCIUM 8.3 mg/dL (8.4-10.2); CARBON DIOXIDE 35 mmol/L (22-30); CHLORIDE 95 mmol/L (98-107); GLUCOSE 100 mg/dL (75-110); SODIUM 132.1 mmol/L (137-145)
[2018-04-01 07:48] LABS: ANION GAP 2 (5-19)
[2018-04-01] MEDS: FLUTICASONE/SALMETEROL DISKUS 500-50 MCG/DOSE IH SCH ×2 (11:04→21:54)
[2018-04-01] MEDS: FAMOTIDINE 20 MG TABLET PO SCH ×2 (11:05→21:54)
[2018-04-01] MEDS: AMLODIPINE BESYLATE 10 MG TABLET PO SCH (11:05)
[2018-04-01] MEDS: SERTRALINE HCL 50 MG TABLET PO SCH (11:05)
[2018-04-01] MEDS: ROFLUMILAST 500 MCG TABLET PO SCH (11:05)
[2018-04-01] MEDS: FUROSEMIDE 20 MG TABLET PO SCH (11:06)
[2018-04-01] MEDS: TIOTROPIUM BROMIDE DPI 5 CAP/KIT (18 MCG/CAP) IH SCH (11:06)
[2018-04-01] MEDS: METHYLPREDNISOLONE INJ 40 MG/1 ML SDV IV SCH ×2 (11:07→21:55)
[2018-04-01] MEDS: ALPRAZOLAM 0.25 MG TABLET PO PRN (11:12)
[2018-04-01] MEDS: LEVOFLOXACIN 500 MG/D5W RTU 500 MG/100 ML RTUPB IV SCH (21:55)
--- NOTE | 2018-04-01 22:42 | PROGRESS NOTE E ---
Progress Note NAME: SWETHA VILA : 1950 AGE: 67Y DATE: 04/01/2018 ROOM: 318 SUBJECTIVE: The patient is a 67-year-old female who came in with acute respiratory failure requiring noninvasive mechanical ventilation on BiPAP therapy. Patient still unable to tolerate without the BiPAP. She desaturates to the 60s and 70s on slight exertion. Denies any chest pain, nausea, vomiting. No diarrhea. Had spirometry done today but results are not available in the chart. Patient stated that she had an echocardiogram also this morning but no results available yet. Denies any fever, chills. Denies increased coughing, purulent sputum production, or hemoptysis. No diarrhea, vomiting, nausea or abdominal pain. OBJECTIVE: GENERAL: The patient is awake, alert, coherent, oriented x3, afebrile, not in apparent severe respiratory distress. VITAL SIGNS: Temperature of 97.8 with a T-max of 98.1. Heart rate of 93, blood pressure 130/61, respiratory is 21, saturation is 95% on BiPAP of 12/6 and FiO2 of 40% saturating 92-95%. EYES: No jaundice or pallor. EARS, NOSE, AND THROAT: No ear drainage. No nasal discharge. CHEST AND LUNGS: No wheezing, no rhonchi, no coarse crackles. CARDIOVASCULAR: S1, S2 distinct. Normal rate and regular rhythm. ABDOMEN: Flabby, positive bowel sounds, soft, nondistended, nontender. EXTREMITIES: No joint swelling, no cellulitis. No bipedal edema. LABORATORY DATA: Chemistry done today showed sodium was 132, potassium 5.3, chloride 95, CO2 of 35, BUN 38, creatinine is 1.04, glucose 100 and calcium is 8.3. ASSESSMENT: 1. ACUTE RESPIRATORY FAILURE REQUIRING BIPAP THERAPY. 2. SEVERE EXERTIONAL DYSPNEA AND SEVERE EXERTIONAL HYPOXEMIA REVEALED UNDERLYING CARDIAC PROBLEM OR SEVERE PULMONARY HYPERTENSION. 3. POSSIBLE COPD. Currently stable and not in acute bronchospasm but still waiting for the bedside spirometry. PLAN/RECOMMENDATIONS: 1. Continue Advair 500 DiskHaler one puff daily and Spiriva inhaler 1 capsule daily. 2. Albuterol inhaler 2 puffs every 4 hours as needed p.r.n. for severe dyspnea or wheezing. 3. Will wait for the bedside spirometry results and echocardiogram results. 4. Patient may require cardiology evaluation for possible cardiac cath right and left heart. DICTATING PHYSICIAN: GILDARDO SESAY MD,NEYMAR,MPH [id number] PHY#: [id number] ID: [id number] JOB#: [id number] ACCT: [id number] cc: > MTDD
[2018-04-02] MEDS: ALPRAZOLAM 0.25 MG TABLET PO PRN ×3 (00:30→23:20)
[2018-04-02] MEDS: IPRATROPIUM/ALBUTEROL 0.5-2.5 MG/3 ML AMPUL NEB SCH ×6 (00:46→19:32)
[2018-04-02 06:22] LABS: ANION GAP 5 (5-19); BLOOD UREA NITROGEN 37 mg/dL (7-20); CALCIUM 8.4 mg/dL (8.4-10.2); CARBON DIOXIDE 36 mmol/L (22-30); CHLORIDE 93 mmol/L (98-107); GLUCOSE 129 mg/dL (75-110); POTASSIUM 4.9 mmol/L (3.6-5.0); SODIUM 133.5 mmol/L (137-145)
--- NOTE | 2018-04-02 08:24 | PDOC PROGRESS REPORT ---
Subjective Progress Note for:: 04/02/18 Subjective:: still needs bipap to get to [facility]. Off for meals. Reason For Visit: CHRONIC RESPIRATORY FAILURE Physical Exam Vital Signs: Temp Pulse Resp BP Pulse Ox 97.8 F 93 26 H 152/69 H 96 04/02/18 07:15 04/02/18 07:15 04/02/18 07:15 04/02/18 07:15 04/02/18 07:15 Pulse Oximeter Continuous Start: 03/29/18 17:32 Freq: RTQ4 Status: Active Protocol: Document 04/02/18 03:31 MED (Rec: 04/02/18 03:33 MED [email or web address]) Pulse Oximetry Assessment Oxygen Saturation (92-100) 94 Oxygen Delivery Method Bi-pap Fraction of Inspired Oxygen (FIO2) 40 Equipment Usage Equipment in Use Continuous SpO2 Machine # 13 Intake & Output 04/01/18 04/02/18 04/03/18 07:59 07:59 07:59 Intake Total 1162 1032 Output Total 240 Balance 922 1032 Weight 142 lb 6.698 oz 143 lb 4.807 oz General appearance: PRESENT: no acute distress Respiratory exam: PRESENT: wheezes - moderate Cardiovascular exam: PRESENT: systolic murmur. ABSENT: diastolic murmur, irregular rhythm Murmur grade: 1 - L sternal border GI/Abdominal exam: ABSENT: mass, organolmegaly, tenderness Extremities exam: ABSENT: pedal edema Neurological exam: PRESENT: oriented to situation - but not ready to decide about dnr. Leaving it to sister. Psychiatric exam: PRESENT: anxious Results Laboratory Results: 03/28/18 05:08 04/02/18 04:59 Impressions: Chest X-Ray 03/25/18 19:59 IMPRESSION: NO ACUTE RADIOGRAPHIC FINDING IN THE CHEST. Chest/Abdomen CTA 03/25/18 21:58 IMPRESSION: Negative for pulmonary embolus or thoracic aortic aneurysm/dissection. Atheromatous changes of the distal descending thoracic aorta and more significant atheromatous changes in the visualized upper abdominal aorta. Cardiomegaly. Small pericardial effusion. Partial visualization of what appears to be a severely atrophic right kidney. The lungs are clear TECHNICAL DOCUMENTATION: Quality ID # 436: Final reports with documentation of one or more dose reduction techniques (e.g., Automated exposure control, adjustment of the mA and/or kV according to patient size, use of iterative reconstruction technique) copyright 2011 [employer]- All Rights Reserved Assessment & Plan - Diagnosis (1) Acute on chronic respiratory failure with hypercapnia Is this a current diagnosis for this admission?: Yes Plan: Discussed with Dr Waller who will see her tomorrow. Diagnostic options limited by lung disease. Cant katie. Considering cardiac mri and B cath. Anxiety may limit mri. Both consultants have mentioned pulmonary hypertension. Reports pending from bedside pft & repeat echo. (2) Mucopurulent chronic bronchitis Is this a current diagnosis for this admission?: Yes Plan: admits chronic productive cough. Better diagnosis with no emphysema on ct. (3) Chronic cor pulmonale Is this a current diagnosis for this admission?: Yes (4) Chronic diastolic heart failure Is this a current diagnosis for this admission?: Yes (5) Essential (primary) hypertension Is this a current diagnosis for this admission?: Yes (6) Atherosclerosis of [place] arteries of extremities with intermittent claudication, right leg Is this a current diagnosis for this admission?: Yes (7) Mixed hyperlipidemia Is this a current diagnosis for this admission?: Yes - Inpatient Certification Medical Necessity: Failure to Improve With Outpatient Therapy, Significant [place] morbidiites Make Outpatient Treatment Too Risky, Need Close Monitoring Due to Risk of Patient Decompensation, Need For Continuous Telemetry Monitoring, Need for Nebulizer Therapy and Monitoring of Response, Need for IV Antibiotics, Risk of Complication if Not Cared For in Hospital, Risk of Diagnosis Which Will Require Inpatient Eval/Care/Monitoring
[2018-04-02] MEDS ORDERED: ONDANSETRON 4 MG TAB.RAPDIS PO PRN (08:57)
[2018-04-02] MEDS: FUROSEMIDE 20 MG TABLET PO SCH (11:08)
[2018-04-02] MEDS: SERTRALINE HCL 50 MG TABLET PO SCH (11:08)
[2018-04-02] MEDS: METHYLPREDNISOLONE INJ 40 MG/1 ML SDV IV SCH ×2 (11:09→23:06)
[2018-04-02] MEDS: AMLODIPINE BESYLATE 10 MG TABLET PO SCH (11:09)
[2018-04-02] MEDS: ROFLUMILAST 500 MCG TABLET PO SCH (11:11)
[2018-04-02] MEDS: FLUTICASONE/SALMETEROL DISKUS 500-50 MCG/DOSE IH SCH ×2 (11:12→23:05)
[2018-04-02] MEDS: FAMOTIDINE 20 MG TABLET PO SCH ×2 (11:13→23:06)
[2018-04-02] MEDS: TIOTROPIUM BROMIDE DPI 5 CAP/KIT (18 MCG/CAP) IH SCH (11:14)
[2018-04-02] MEDS: LEVOFLOXACIN 500 MG/D5W RTU 500 MG/100 ML RTUPB IV SCH (23:06)
[2018-04-03] MEDS: IPRATROPIUM/ALBUTEROL 0.5-2.5 MG/3 ML AMPUL NEB SCH ×6 (00:05→20:29)
[2018-04-03 04:13] LABS: ARTERIAL BLOOD BASE EXCESS 10.1 mmol/L; ARTERIAL BLOOD H2CO3 2.11 mmol/L (1.05-1.35); ARTERIAL BLOOD HCO3 39.1 mmol/L (20-24); ARTERIAL BLOOD O2 SATURATION 81.6 % (94-98); ARTERIAL BLOOD PH 7.36 (7.35-7.45); ARTERIAL BLOOD PO2 48.9 mmHg (80-100); ARTERIAL BLOOD TOTAL CO2 41.3 mmol/L (21-25)
[2018-04-03 04:15] LABS: ARTERIAL BLOOD FIO2 5L
[2018-04-03 04:16] LABS: ARTERIAL BLOOD PCO2 70.2 mmHg (35-45)
[2018-04-03 06:32] LABS: BLOOD UREA NITROGEN 28 mg/dL (7-20); CALCIUM 8.5 mg/dL (8.4-10.2); GLUCOSE 118 mg/dL (75-110); POTASSIUM 4.8 mmol/L (3.6-5.0)
[2018-04-03 06:38] LABS: CARBON DIOXIDE 37 mmol/L (22-30); CHLORIDE 91 mmol/L (98-107)
[2018-04-03 06:48] LABS: ANION GAP 3 (5-19)
--- NOTE | 2018-04-03 08:16 | PDOC PROGRESS REPORT ---
Subjective Progress Note for:: 04/03/18 Subjective:: "I am breathing" Reason For Visit: CHRONIC RESPIRATORY FAILURE Physical Exam Vital Signs: Temp Pulse Resp BP Pulse Ox 97.8 F 98 16 141/69 H 91 L 04/03/18 03:36 04/03/18 06:00 04/03/18 06:00 04/03/18 03:36 04/03/18 06:00 Pulse Oximeter Continuous Start: 03/29/18 17:32 Freq: RTQ4 Status: Active Protocol: Document 04/03/18 04:34 MED (Rec: 04/03/18 04:37 MED [email or web address]) Pulse Oximetry Assessment Oxygen Saturation (92-100) 90 Oxygen Delivery Method Bi-pap Fraction of Inspired Oxygen (FIO2) 40 Equipment Usage Equipment in Use Continuous SpO2 Machine # 13 Intake & Output 04/02/18 04/03/18 04/04/18 07:59 07:59 07:59 Intake Total 1032 268 Balance 1032 268 Weight 143 lb 4.807 oz 139 lb 15.896 oz General appearance: PRESENT: mild distress Respiratory exam: PRESENT: wheezes - moderate Cardiovascular exam: ABSENT: diastolic murmur, irregular rhythm, systolic murmur GI/Abdominal exam: ABSENT: tenderness Extremities exam: ABSENT: pedal edema Neurological exam: PRESENT: oriented to situation Psychiatric exam: PRESENT: anxious Results Laboratory Results: 03/28/18 05:08 04/03/18 05:02 04/03/18 04/03/18 03:50 05:02 Carbonic Acid 2.11 H HCO3/H2CO3 Ratio 18:1 ABG pH 7.36 ABG pCO2 70.2 H* ABG pO2 48.9 L ABG HCO3 39.1 H ABG O2 Saturation 81.6 L ABG Base Excess 10.1 FiO2 5L Sodium 131.0 L Potassium 4.8 Chloride 91 L Carbon Dioxide 37 H Anion Gap 3 L BUN 28 H Creatinine 0.85 Est GFR ( Amer) > 60 Est GFR (Non-Af Amer) > 60 Glucose 118 H Calcium 8.5 03/25/18 03/25/18 04/01/18 19:35 19:35 06:19 Creatine Kinase 47 CK-MB (CK-2) 3.38 Troponin I 0.044 NT-Pro-B Natriuret Pep 1900 H 791 Impressions: Chest X-Ray 03/25/18 19:59 IMPRESSION: NO ACUTE RADIOGRAPHIC FINDING IN THE CHEST. Chest/Abdomen CTA 03/25/18 21:58 IMPRESSION: Negative for pulmonary embolus or thoracic aortic aneurysm/dissection. Atheromatous changes of the distal descending thoracic aorta and more significant atheromatous changes in the visualized upper abdominal aorta. Cardiomegaly. Small pericardial effusion. Partial visualization of what appears to be a severely atrophic right kidney. The lungs are clear TECHNICAL DOCUMENTATION: Quality ID # 436: Final reports with documentation of one or more dose reduction techniques (e.g., Automated exposure control, adjustment of the mA and/or kV according to patient size, use of iterative reconstruction technique) copyright 2011 [employer]- All Rights Reserved Assessment & Plan - Diagnosis (1) Acute on chronic respiratory failure with hypercapnia Is this a current diagnosis for this admission?: Yes Plan: pft:fvc20 fev1=17 ratio53 albuterol=fev1=20 pCO2=70 pO2=48 bicarb=39 ph7.34 on 5L NC. May need intubation some day soon. Increase bipap to 16*8. She is still putting off DNR decision. (2) Mucopurulent chronic bronchitis Is this a current diagnosis for this admission?: Yes (3) Chronic cor pulmonale Is this a current diagnosis for this admission?: Yes (4) Chronic diastolic heart failure Is this a current diagnosis for this admission?: Yes (5) Essential (primary) hypertension Is this a current diagnosis for this admission?: Yes (6) Atherosclerosis of [place] arteries of extremities with intermittent claudication, right leg Is this a current diagnosis for this admission?: Yes (7) Mixed hyperlipidemia Is this a current diagnosis for this admission?: Yes
--- NOTE | 2018-04-03 08:36 | PULMONARY FUNCTION TEST ---
PULMONARY FUNCTION TEST PATIENT NAME: SWETHA VILA MR#: [id number] ROOM#: 318 DATE OF STUDY: 03/31/2018 AGE/RACE/GENDER: 67 F REFERRING MD: Gildardo Sesay MD Procedure: Spirometry Pre/Post bronchodilator INDICATION: Increased severe dyspnea, increased desaturation even on oxygen. REPORT The spirometry showed obstructive airway defect based on the FEV-1/FVC ratio of 63%. 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 INTERPRETING PHYSICIAN: GILDARDO SESAY MD,NEYMAR,MPH /: MTEFFT TT: [id number] ID: [id number] /: [id number] TD: [id number] JOB: [id number] cc:Johanna YOUNG M.D. > MTDD
[2018-04-03] MEDS: ROFLUMILAST 500 MCG TABLET PO SCH (12:19)
[2018-04-03] MEDS: FUROSEMIDE 20 MG TABLET PO SCH (12:19)
[2018-04-03] MEDS: ALPRAZOLAM 0.25 MG TABLET PO PRN ×2 (12:19→22:06)
[2018-04-03] MEDS: FAMOTIDINE 20 MG TABLET PO SCH ×2 (12:19→21:39)
[2018-04-03] MEDS: SERTRALINE HCL 50 MG TABLET PO SCH (12:20)
[2018-04-03] MEDS: FLUTICASONE/SALMETEROL DISKUS 500-50 MCG/DOSE IH SCH ×2 (12:20→21:40)
[2018-04-03] MEDS: TIOTROPIUM BROMIDE DPI 5 CAP/KIT (18 MCG/CAP) IH SCH (12:21)
[2018-04-03] MEDS: AMLODIPINE BESYLATE 10 MG TABLET PO SCH (12:21)
[2018-04-03] MEDS ORDERED: PREDNISONE 20 MG TABLET PO ONE (13:00)
--- NOTE | 2018-04-03 16:48 | PROGRESS NOTE E ---
Progress Note NAME: SWETHA VILA : 1950 AGE: 67Y DATE: 04/02/2018 ROOM: 318 SUBJECTIVE: The patient is a 67-year-old female who came in with acute respiratory failure requiring noninvasive mechanical ventilation (or BiPAP therapy). She denies any fever, chills, increasing cough, or purulent sputum production or chest pain. Complains about very severe exertional dyspnea even with slight movement while on BiPAP therapy. Sometimes desaturating to the lower 80s according to the patient's nurse today. The bedside spirometry done on 03/31/2018 was now available and showed very severe obstructive airway defect suggestive of very severe or end-stage COPD/chronic bronchitis. The patient is taking Spiriva inhaler 1 capsule daily and Advair 500 DiskHaler 1 puff daily and takes albuterol inhaler as needed, 2 puffs four times a day. OBJECTIVE: GENERAL: The patient is awake, alert, coherent, oriented x3, afebrile. No in apparent severe respiratory distress while lying down on BiPAP at 12/6. VITAL SIGNS: Temperature of 98.3 with a T-max of 98.3, heart rate of 99, blood pressure is 148/68, respiratory rate is 24, oxygen saturation is 94% on BiPAP 40% FiO2 and a rate of 10. EYES: No jaundice or pallor. EARS, NOSE, AND THROAT: No ear drainage. No nasal discharge. CHEST AND LUNGS: No wheezing, no rhonchi, no coarse crackles. CARDIOVASCULAR: S1, S2 distinct. Normal rate and regular rhythm. ABDOMEN: Flabby, positive bowel sounds, soft, nondistended, nontender. EXTREMITIES: No joint swelling, no cellulitis. LABORATORY DATA: Chemistry done today showed sodium is 133, potassium 4.9, chloride 93, CO2 is 36, BUN 57, creatinine 0.93, glucose 129, calcium of 8.4. Spirometry done 03/31/2018 showed very severe or GOLD Class 4 COPD/chronic bronchitis with FEV1 of 17% predicted. ASSESSMENT: 1. COPD/CHRONIC BRONCHITIS, VERY SEVERE or END-STAGE. Currently stable and not in acute bronchospasm. 2. ACUTE ON CHRONIC RESPIRATORY FAILURE. Requiring noninvasive mechanical ventilation on BiPAP therapy. The patient may require BiPAP therapy the same settings when discharged home. 3. SEVERE EXERTIONAL DYSPNEA AND HYPOXEMIA, which seems to be out of proportion of the patient's current pulmonary status despite very severe COPD/chronic bronchitis diagnoses. The patient may have underlying cardiac condition such as severe coronary artery disease causing the patient to decompensate severely on slight physical exertion. The patient may require a cardiac cath, right and left. May consider referring the patient to the [facility] project construction assistant manager for further evaluation. PLAN/RECOMMENDATIONS: 1. Continue the Spiriva inhaler once capsule daily. 2. Continue Advair 500 DiskHaler 1 puff b.i.d. 3. Continue albuterol inhaler 2 puffs four times a day. 4. The patient may be able to go home with a DuoNeb nebulizer treatment every 6 hours as needed. 5. Consider Daliresp 500 mg tablet p.o. daily. 6. Recommend the patient going home with a BiPAP therapy 03/05 with a rate of 10 and FiO2 of 3 liters and adjust FiO2 to keep saturation 91-94%. 7. Recommend interventional cardiology evaluation for possible cardiac cath, right and left heart. DICTATING PHYSICIAN: GILDARDO SESAY MD,NEYMAR,MPH [id number] PHY#: [id number] ID: [id number] JOB#: [id number] ACCT: [id number] cc: > RAJID
[2018-04-03] MEDS: PREDNISONE 20 MG TABLET PO SCH (21:40)
[2018-04-03] MEDS: METHYLPREDNISOLONE INJ 40 MG/1 ML SDV IV SCH (21:43)
[2018-04-04] MEDS: IPRATROPIUM/ALBUTEROL 0.5-2.5 MG/3 ML AMPUL NEB SCH ×6 (00:36→19:50)
[2018-04-04 05:36] LABS: BLOOD UREA NITROGEN 32 mg/dL (7-20); CALCIUM 8.6 mg/dL (8.4-10.2); CHLORIDE 90 mmol/L (98-107); GLUCOSE 111 mg/dL (75-110); SODIUM 132.3 mmol/L (137-145)
[2018-04-04 05:47] LABS: ANION GAP 5 (5-19); CARBON DIOXIDE 37 mmol/L (22-30)
--- NOTE | 2018-04-04 08:35 | PDOC PROGRESS REPORT ---
Subjective Progress Note for:: 04/04/18 Subjective:: Does not want cpr or vent. Reason For Visit: CHRONIC RESPIRATORY FAILURE Physical Exam Vital Signs: Temp Pulse Resp BP Pulse Ox 97.9 F 101 H 20 179/74 H 95 04/04/18 07:37 04/04/18 07:37 04/04/18 07:37 04/04/18 07:37 04/04/18 07:37 Pulse Oximeter Continuous Start: 03/29/18 17:32 Freq: RTQ4 Status: Active Protocol: Document 04/04/18 03:52 CMI (Rec: 04/04/18 03:53 CMI [id number]) Pulse Oximetry Assessment Oxygen Saturation (92-100) 91 Oxygen Delivery Method Bi-pap Fraction of Inspired Oxygen (FIO2) 40 Equipment Usage Equipment in Use Continuous SpO2 Machine # 13 Intake & Output 04/03/18 04/04/18 04/05/18 07:59 07:59 07:59 Intake Total 268 250 Balance 268 250 Weight 139 lb 15.896 oz 138 lb 3.677 oz General appearance: PRESENT: no acute distress Respiratory exam: PRESENT: prolonged expiratory phas, wheezes - mild Cardiovascular exam: PRESENT: systolic murmur. ABSENT: diastolic murmur, irregular rhythm Murmur grade: 1 - L sternal border GI/Abdominal exam: ABSENT: mass, organolmegaly, tenderness Extremities exam: ABSENT: pedal edema Neurological exam: PRESENT: oriented to situation Psychiatric exam: PRESENT: appropriate affect Results Laboratory Results: 03/28/18 05:08 04/04/18 04:54 04/04/18 04:54 Sodium 132.3 L Potassium 5.0 Chloride 90 L Carbon Dioxide 37 H Anion Gap 5 BUN 32 H Creatinine 0.92 Est GFR ( Amer) > 60 Est GFR (Non-Af Amer) > 60 Glucose 111 H Calcium 8.6 Impressions: Chest X-Ray 03/25/18 19:59 IMPRESSION: NO ACUTE RADIOGRAPHIC FINDING IN THE CHEST. Chest/Abdomen CTA 03/25/18 21:58 IMPRESSION: Negative for pulmonary embolus or thoracic aortic aneurysm/dissection. Atheromatous changes of the distal descending thoracic aorta and more significant atheromatous changes in the visualized upper abdominal aorta. Cardiomegaly. Small pericardial effusion. Partial visualization of what appears to be a severely atrophic right kidney. The lungs are clear TECHNICAL DOCUMENTATION: Quality ID # 436: Final reports with documentation of one or more dose reduction techniques (e.g., Automated exposure control, adjustment of the mA and/or kV according to patient size, use of iterative reconstruction technique) copyright 2011 [employer]- All Rights Reserved Assessment & Plan - Diagnosis (1) Acute on chronic respiratory failure with hypercapnia Is this a current diagnosis for this admission?: Yes Plan: Poor intake. No longer getting up to bed side commode. Bipap 16*8*50%. Switching from investigate & curative mode to inpatient hospice mode with comfort goal. Stop furosemide. Added bupsirone. Explained she may wish to give up bipap and add morphine at some point. No excalations like antibiotics. Consilder stopping prednisone advair spiriva. (2) Mucopurulent chronic bronchitis Is this a current diagnosis for this admission?: Yes (3) Chronic cor pulmonale Is this a current diagnosis for this admission?: Yes (4) Chronic diastolic heart failure Is this a current diagnosis for this admission?: Yes (5) Essential (primary) hypertension Is this a current diagnosis for this admission?: Yes (6) Atherosclerosis of [place] arteries of extremities with intermittent claudication, right leg Is this a current diagnosis for this admission?: Yes (7) Mixed hyperlipidemia Is this a current diagnosis for this admission?: Yes
[2018-04-04] MEDS: FLUTICASONE/SALMETEROL DISKUS 500-50 MCG/DOSE IH SCH ×2 (10:39→22:00)
[2018-04-04] MEDS: AMLODIPINE BESYLATE 10 MG TABLET PO SCH (10:40)
[2018-04-04] MEDS: TIOTROPIUM BROMIDE DPI 5 CAP/KIT (18 MCG/CAP) IH SCH (10:40)
[2018-04-04] MEDS: SERTRALINE HCL 50 MG TABLET PO SCH (10:40)
[2018-04-04] MEDS: ROFLUMILAST 500 MCG TABLET PO SCH (10:41)
[2018-04-04] MEDS: PREDNISONE 20 MG TABLET PO SCH (10:41)
[2018-04-04] MEDS: FAMOTIDINE 20 MG TABLET PO SCH ×2 (10:41→22:00)
[2018-04-04] MEDS: LORAZEPAM INJ 2 MG/1 ML VIAL IV PRN ×2 (11:25→19:37)
[2018-04-04] MEDS: BUSPIRONE HCL 10 MG TABLET PO SCH ×2 (13:11→22:00)
[2018-04-05] MEDS: IPRATROPIUM/ALBUTEROL 0.5-2.5 MG/3 ML AMPUL NEB SCH ×7 (00:11→23:59)
[2018-04-05] MEDS: LORAZEPAM INJ 2 MG/1 ML VIAL IV PRN ×4 (05:07→20:32)
[2018-04-05] MEDS: BUSPIRONE HCL 10 MG TABLET PO SCH ×3 (05:12→22:58)
--- NOTE | 2018-04-05 06:50 | PDOC PROGRESS REPORT ---
Subjective Progress Note for:: 04/05/18 Subjective:: IV ativan helped a lot when sat dropped too much to take pills with bipap off. Nurse says not able to use inhalers properly. Reason For Visit: CHRONIC RESPIRATORY FAILURE Physical Exam Vital Signs: Temp Pulse Resp BP Pulse Ox 97.7 F 99 20 130/80 H 96 04/05/18 03:14 04/05/18 04:39 04/05/18 04:39 04/05/18 03:14 04/05/18 04:39 Pulse Oximeter Continuous Start: 03/29/18 17:32 Freq: RTQ4 Status: Active Protocol: Document 04/05/18 04:39 CBR (Rec: 04/05/18 04:50 CBR [email or web address]) Pulse Oximetry Assessment Oxygen Saturation (92-100) 96 Oxygen Delivery Method Bi-pap Fraction of Inspired Oxygen (FIO2) 50 Equipment Usage Equipment in Use Continuous SpO2 Machine # 13 Intake & Output 04/03/18 04/04/18 04/05/18 07:59 07:59 07:59 Intake Total 268 250 150 Balance 268 250 150 Weight 139 lb 15.896 oz 138 lb 3.677 oz General appearance: PRESENT: no acute distress Respiratory exam: PRESENT: clear to auscultation ginger Cardiovascular exam: ABSENT: diastolic murmur, irregular rhythm, systolic murmur GI/Abdominal exam: ABSENT: mass, organolmegaly, tenderness Extremities exam: ABSENT: pedal edema Neurological exam: PRESENT: oriented to situation Psychiatric exam: PRESENT: appropriate affect Results Laboratory Results: 03/28/18 05:08 04/05/18 04:52 Impressions: Chest X-Ray 03/25/18 19:59 IMPRESSION: NO ACUTE RADIOGRAPHIC FINDING IN THE CHEST. Chest/Abdomen CTA 03/25/18 21:58 IMPRESSION: Negative for pulmonary embolus or thoracic aortic aneurysm/dissection. Atheromatous changes of the distal descending thoracic aorta and more significant atheromatous changes in the visualized upper abdominal aorta. Cardiomegaly. Small pericardial effusion. Partial visualization of what appears to be a severely atrophic right kidney. The lungs are clear TECHNICAL DOCUMENTATION: Quality ID # 436: Final reports with documentation of one or more dose reduction techniques (e.g., Automated exposure control, adjustment of the mA and/or kV according to patient size, use of iterative reconstruction technique) copyright 2011 [employer]- All Rights Reserved Assessment & Plan - Diagnosis (1) Acute on chronic respiratory failure with hypercapnia Is this a current diagnosis for this admission?: Yes Plan: Sat dropped to 70s taking pills. PO 150/d. Ativan 0.5mg iv q3h prn. (2) Mucopurulent chronic bronchitis Is this a current diagnosis for this admission?: Yes (3) Chronic cor pulmonale Is this a current diagnosis for this admission?: Yes (4) Chronic diastolic heart failure Is this a current diagnosis for this admission?: Yes (5) Essential (primary) hypertension Is this a current diagnosis for this admission?: Yes (6) Atherosclerosis of [place] arteries of extremities with intermittent claudication, right leg Is this a current diagnosis for this admission?: Yes (7) Mixed hyperlipidemia Is this a current diagnosis for this admission?: Yes - Inpatient Certification Medical Necessity: Failure to Improve With Outpatient Therapy, Significant Comorbidiites Make Outpatient Treatment Too Risky, Need Close Monitoring Due to Risk of Patient Decompensation, Need For Continuous Telemetry Monitoring, Need for Nebulizer Therapy and Monitoring of Response, Risk of Complication if Not Cared For in Hospital, Risk of Diagnosis Which Will Require Inpatient Eval/Care/Monitoring
[2018-04-05] MEDS: TIOTROPIUM BROMIDE DPI 5 CAP/KIT (18 MCG/CAP) IH SCH (10:08)
[2018-04-05] MEDS: FLUTICASONE/SALMETEROL DISKUS 500-50 MCG/DOSE IH SCH ×2 (10:08→22:58)
[2018-04-05] MEDS: ROFLUMILAST 500 MCG TABLET PO SCH (10:09)
[2018-04-05] MEDS: PREDNISONE 20 MG TABLET PO SCH (10:09)
[2018-04-05] MEDS: POLYETHYLENE GLYCOL 3350 POWDER 17 GM/1 PACKET PO SCH (10:09)
[2018-04-05] MEDS: SERTRALINE HCL 50 MG TABLET PO SCH (10:09)
[2018-04-05] MEDS: FAMOTIDINE 20 MG TABLET PO SCH ×2 (10:09→22:58)
[2018-04-05] MEDS: AMLODIPINE BESYLATE 10 MG TABLET PO SCH (10:09)
[2018-04-05] MEDS: LUBIPROSTONE 24 MCG CAPSULE PO SCH (22:58)
[2018-04-06] MEDS: IPRATROPIUM/ALBUTEROL 0.5-2.5 MG/3 ML AMPUL NEB SCH ×4 (04:39→16:41)
[2018-04-06] MEDS: BUSPIRONE HCL 10 MG TABLET PO SCH (05:53)
[2018-04-06] MEDS: LORAZEPAM INJ 2 MG/1 ML VIAL IV PRN ×6 (06:07→18:35)
--- NOTE | 2018-04-06 07:59 | PDOC PROGRESS REPORT ---
Subjective Progress Note for:: 04/06/18 Subjective:: abdominal cramps till enema results. Reason For Visit: CHRONIC RESPIRATORY FAILURE Physical Exam Vital Signs: Temp Pulse Resp BP Pulse Ox 98.8 F 94 18 181/63 H 94 04/06/18 03:36 04/06/18 04:39 04/06/18 04:39 04/06/18 03:36 04/06/18 04:39 Pulse Oximeter Continuous Start: 03/29/18 17:32 Freq: RTQ4 Status: Active Protocol: Document 04/06/18 04:39 CBR (Rec: 04/06/18 04:51 CBR [email or web address]) Pulse Oximetry Assessment Oxygen Saturation (92-100) 94 Oxygen Delivery Method Bi-pap Fraction of Inspired Oxygen (FIO2) 50 Equipment Usage Equipment in Use Continuous SpO2 Machine # 13 Intake & Output 04/04/18 04/05/18 04/06/18 07:59 07:59 07:59 Intake Total 250 150 625 Balance 250 150 625 Weight 138 lb 3.677 oz 138 lb 3.677 oz 137 lb 2.04 oz General appearance: PRESENT: no acute distress Respiratory exam: PRESENT: wheezes Cardiovascular exam: ABSENT: diastolic murmur, irregular rhythm, systolic murmur GI/Abdominal exam: ABSENT: tenderness Neurological exam: PRESENT: oriented to situation Psychiatric exam: PRESENT: appropriate affect Results Laboratory Results: 03/28/18 05:08 04/05/18 04:52 03/25/18 03/25/18 04/01/18 19:35 19:35 06:19 Creatine Kinase 47 CK-MB (CK-2) 3.38 Troponin I 0.044 NT-Pro-B Natriuret Pep 1900 H 791 Impressions: Chest X-Ray 03/25/18 19:59 IMPRESSION: NO ACUTE RADIOGRAPHIC FINDING IN THE CHEST. Chest/Abdomen CTA 03/25/18 21:58 IMPRESSION: Negative for pulmonary embolus or thoracic aortic aneurysm/dissection. Atheromatous changes of the distal descending thoracic aorta and more significant atheromatous changes in the visualized upper abdominal aorta. Cardiomegaly. Small pericardial effusion. Partial visualization of what appears to be a severely atrophic right kidney. The lungs are clear TECHNICAL DOCUMENTATION: Quality ID # 436: Final reports with documentation of one or more dose reduction techniques (e.g., Automated exposure control, adjustment of the mA and/or kV according to patient size, use of iterative reconstruction technique) copyright 2011 [employer]- All Rights Reserved Assessment & Plan - Diagnosis (1) Acute on chronic respiratory failure with hypercapnia Is this a current diagnosis for this admission?: Yes Plan: Says spriva & advair dont help as much as nebs. Nurse says does not take inhaler properly. Will stop them. Got IV ativan twice which helped. (2) Mucopurulent chronic bronchitis Is this a current diagnosis for this admission?: Yes (3) Chronic cor pulmonale Is this a current diagnosis for this admission?: Yes (4) Chronic diastolic heart failure Is this a current diagnosis for this admission?: Yes (5) Essential (primary) hypertension Is this a current diagnosis for this admission?: Yes Plan: bp back up. Resume lisinopril. (6) Atherosclerosis of [place] arteries of extremities with intermittent claudication, right leg Is this a current diagnosis for this admission?: Yes (7) Mixed hyperlipidemia Is this a current diagnosis for this admission?: Yes - Inpatient Certification Medical Necessity: Failure to Improve With Outpatient Therapy, Significant Comorbidiites Make Outpatient Treatment Too Risky, Need Close Monitoring Due to Risk of Patient Decompensation, Need For Continuous Telemetry Monitoring, Need for Nebulizer Therapy and Monitoring of Response, Risk of Complication if Not Cared For in Hospital, Risk of Diagnosis Which Will Require Inpatient Eval/Care/Monitoring
[2018-04-06] MEDS ORDERED: LISINOPRIL 10 MG TABLET PO SCH (10:00)
[2018-04-06] MEDS: AMLODIPINE BESYLATE 10 MG TABLET PO SCH (10:36)
[2018-04-06] MEDS: FAMOTIDINE 20 MG TABLET PO SCH (10:37)
[2018-04-06] MEDS: SERTRALINE HCL 50 MG TABLET PO SCH (10:37)
[2018-04-06] MEDS: PREDNISONE 20 MG TABLET PO SCH (10:38)
[2018-04-06] MEDS: POLYETHYLENE GLYCOL 3350 POWDER 17 GM/1 PACKET PO SCH (10:39)
[2018-04-06] MEDS: LUBIPROSTONE 24 MCG CAPSULE PO SCH (10:39)
[2018-04-06] MEDS: ROFLUMILAST 500 MCG TABLET PO SCH (10:40)
[2018-04-06 11:40] VITALS: BP 161/66
[2018-04-06] MEDS: MORPHINE SULFATE 10 MG/ML INJ IV PRN ×4 (15:27→18:35)
--- NOTE | 2018-04-06 15:52 | PROGRESS NOTE E ---
Progress Note NAME: SWETHA VILA : 1950 AGE: 67Y DATE: 04/04/2018 ROOM: 318 SUBJECTIVE: The patient is a 67-year-old female who came in with [id number] respiratory failure requiring BiPAP therapy. Currently stable. The patient denies any fever or chills, increasing cough, or chest pain or abdominal pain. Has been on BiPAP since admission on and off. Unable to tolerate the nasal cannula. Requires 5-6 L of oxygen using nasal cannula, and desaturates severely during slight exertion. Spoke to Cardiology, , who saw the patient and reevaluated the echo. He feels that the patient does not have a cardiac problem, does not have myocardial ischemia. The cardiac ejection fraction is normal, and he believed that the patient's problem is mostly pulmonary. The bedside spirometry showed very severe end-stage COPD based on the FEV1 of 17% postbronchodilator. OBJECTIVE: GENERAL: The patient is awake, alert, coherent, oriented x3, afebrile. Not in apparent severe respiratory distress. VITAL SIGNS: Temperature of 97.8, with a T-max of 98.1, blood pressure is 179/74, heart rate is 102, respiratory rate of 24, saturation is 95% on 50% FiO2. EYES: No jaundice or pallor. EARS, NOSE, AND THROAT: No ear drainage. No nasal discharge. CHEST AND LUNGS: No wheezing. No rhonchi. No coarse crackles. CARDIOVASCULAR: S1, S2 distinct. Normal rate, regular rhythm. ABDOMEN: Flabby. Positive bowel sounds. Soft, nondistended, nontender. EXTREMITIES: No joint swelling and no cellulitis. ASSESSMENT: 1. VERY SEVERE END-STAGE CHRONIC OBSTRUCTIVE PULMONARY DISEASE BASED ON THE BEDSIDE SPIROMETRY. 2. [id number] RESPIRATORY FAILURE REQUIRING BIPAP THERAPY. The patient may go home on BiPAP therapy set at 14 / 6 cm H2O, and rate of 12, supplemented with oxygen therapy 3 L connected to the BiPAP, and titrate FiO2 to keep saturation 91-94% prior to home discharge. PLAN/RECOMMENDATIONS: 1. The patient needs to go home on BiPAP therapy and oxygen therapy. BiPAP as prescribed. 2. tie worker consult to evaluate the patient for home discharge. The patient lives alone and may need supervised care, and the patient has to go home on the BiPAP therapy. tie worker may need to arrange with DME. DME needs to provide a [employer] BiPAP ST machine set at 14/6 and rate of 12 and FiO2 of 3 L bled into the machine, and FiO2 to be titrated to keep saturation 91-94%. 3. Recommend Hospice consult for the patient. 4. Will sign off today. The patient needs to follow up with her material flow engineer following hospital discharge. The patient may follow with Dr. Allen or other material flow engineer. Patient's family (sister) shouted at me and barked racist remarks. DICTATING PHYSICIAN: GILDARDO SESAY MD,NEYMAR,MPH [id number] PHY#: [id number] ID: [id number] JOB#: [id number] ACCT: [id number] cc: > MTDD
--- NOTE | 2018-04-07 05:14 | Death Summary ---
Summary Date : 04/06/18 Time of :: 21:11 Autopsy: No Resuscitation Status: Comfort Measures Only Primary Care Provider: jason hawthorne Consulting Provider: Dr Hernández - Final Diagnosis (1) Acute on chronic respiratory failure with hypercapnia Is this a current diagnosis for this admission?: Yes (2) Mucopurulent chronic bronchitis Is this a current diagnosis for this admission?: Yes (3) Chronic cor pulmonale Is this a current diagnosis for this admission?: Yes (4) Chronic diastolic heart failure Is this a current diagnosis for this admission?: Yes (5) Essential (primary) hypertension Is this a current diagnosis for this admission?: Yes (6) Atherosclerosis of [place] arteries of extremities with intermittent claudication, right leg Is this a current diagnosis for this admission?: Yes (7) Mixed hyperlipidemia Is this a current diagnosis for this admission?: Yes Hospital Course:: In spite of more steroids and levaquin, she became more bipap dependent. Pressures and FIO2 had to be increased. She could no longer get up to the bedside commode. Intake was poor. Xanax helped her panic. She requesrted DNR and morphine to ease her terminal dyspnea. She with her family at 21:30.
== END 2018-04-06 22:42 | DRG 189 ==
LOC: ER 19:42 → EH 23:56 → 3W 03-26 09:38
PROVIDERS: ADMIT Family Medicine; ATTEND Family Medicine
PROC: 5A09557 Assistance with Respiratory Ventilation, Greater than 96 Consecutive Hours, Continuous Positive Airway Pressure (ICD-10-PCS; principal; 2018-03-25)
DX: J96.21 Acute and chronic respiratory failure with hypoxia (principal); I50.32 Chronic diastolic (congestive) heart failure; J43.1 Panlobular emphysema; I11.0 Hypertensive heart disease with heart failure; J41.1 Mucopurulent chronic bronchitis; Z66 Do not resuscitate; I27.81 Cor pulmonale (chronic); I70.211 Atherosclerosis of native arteries of extremities with intermittent claudication, right leg; E78.2 Mixed hyperlipidemia; F41.0 Panic disorder [episodic paroxysmal anxiety]; M19.90 Unspecified osteoarthritis, unspecified site; Z98.51 Tubal ligation status; F17.210 Nicotine dependence, cigarettes, uncomplicated; Z82.49 Family history of ischemic heart disease and other diseases of the circulatory system; Z83.3 Family history of diabetes mellitus; Z88.8 Allergy status to other drugs, medicaments and biological substances; Z88.3 Allergy status to other anti-infective agents; Z91.013 Allergy to seafood
CPT/HCPCS: 36415; 71045; 71275; 80048; 80053; 82550; 82553; 82803; 83880; 84443; 84484; 85025; 93005; 93010; 94060; 94640; 94660; 94762; 94799; 96374; 96375; 99291; 99406; J1200; J1956; J2060; J2270; J2920; J2930; J3490; J7512; J7620; S0028